=== PATIENT | female | born 1960 | race Caucasian/White ===

== ENCOUNTER 2018-08-16 19:39 | Inpatient (IN) | payer OTHER ==
[~2018-08-16] VITALS: Ht 165.1 cm; Wt 88.4 kg
[2018-08-16] MEDS ORDERED: NS 1,000 ML IV ONE (19:45)
[2018-08-16] MEDS ORDERED: LISI40TA (19:52)
[2018-08-16] MEDS ORDERED: PRAV20TA2 (19:52)
[2018-08-16] MEDS ORDERED: METO50TA7 (19:52)
[2018-08-16] MEDS ORDERED: HYDR12CA (19:52)
[2018-08-16] MEDS ORDERED: LEVO112T2 (19:52)
--- NOTE | 2018-08-16 20:23 | REP ---
Clinical: Altered mental status . Comparison: None . Findings: The ventricles, sulci, and cisterns are normal in position and appearance. Fitzpatrick-white differentiation is maintained. No acute intracranial hemorrhage, mass/mass effect, pathology or trauma/injury. No evidence for acute infarction. No extra-axial fluid collection. Calvarium is intact. Paranasal sinuses and mastoid air cells are clear. Impression: Normal noncontrast head CT. No evidence for acute intracranial pathology or trauma/injury. Electronically Signed by Jaquan Avila MD 08/16/2018 08:16 P
--- NOTE | 2018-08-16 20:25 | REP ---
Clinical: Altered mental status . Comparison: 03/30/2014 . Findings: The mediastinum and cardiac silhouette are stable and within normal limits for portable technique. The lung mesa are clear without acute consolidation, effusion, or pneumothorax. Skeletal structures are intact. Impression: No acute cardiopulmonary process appreciated. Electronically Signed by Jaquan Avila MD 08/16/2018 08:17 P
[2018-08-16 21:03] LABS: BASO # 0.1 10^3/uL (0.0-0.2); BASO % 0.5 % (0.0-1.0); EOS # 0.1 10^3/uL (0.0-0.50); EOS % 0.5 % (0.0-3.0); HEMATOCRIT 34.1 % (36.0-47.0); HEMOGLOBIN 12.3 g/dl (12.0-15.5); LYMPH % 7.9 % (24.0-44.0); MEAN CORPUSCULAR HEMOGLOBIN 30.8 pg (27.0-33.0); MEAN CORPUSCULAR HGB CONC 36.1 g/dl (32.0-36.5); MEAN CORPUSCULAR VOLUME 85.3 fl (80.0-96.0); MONO # 0.4 10^3/uL (0.0-0.8); MONO % 3.6 % (0.0-5.0); NEUTROPHILS # 10.5 10^3/uL (1.8-7.7); NEUTROPHILS % 86.8 % (36.0-66.0); PLATELET COUNT, AUTOMATED 305 10^3/uL (150-450); WHITE BLOOD COUNT 12.1 10^3/uL (4.0-10.0)
[2018-08-16 21:10] LABS: AMPHETAMINES LEVEL URINE NEGATIVE (NEGATIVE); BARBITURATES URINE NEGATIVE (NEGATIVE); BENZODIAZEPINES URINE NEGATIVE (NEGATIVE); CANNABINOIDS URINE NEGATIVE (NEGATIVE); COCAINE METABOLITE URINE NEGATIVE (NEGATIVE); METHADONE URINE NEGATIVE (NEGATIVE); OPIATES URINE NEGATIVE (NEGATIVE); OSMOLALITY SERUM 258 MOSM/KG (275-295); PHENCYCLIDINE URINE NEGATIVE (NEGATIVE)
[2018-08-16 21:38] LABS: ACETAMINOPHEN LEVEL < 2.0 UG/ML (10.0-30.0); ALBUMIN 3.6 GM/DL (3.2-5.2); ALT/SGPT 28 U/L (12-78); BILIRUBIN,DIRECT 0.2 MG/DL (0.0-0.2); BILIRUBIN,TOTAL 0.5 MG/DL (0.2-1.0); BLOOD UREA NITROGEN 4 MG/DL (7-18); CALCIUM LEVEL 8.4 MG/DL (8.5-10.1); CARBON DIOXIDE LEVEL 21 MEQ/L (21-32); CHLORIDE LEVEL 91 MEQ/L (98-107); CK-MB VALUE MASS 3.4 NG/ML (<3.6); CPK CREATINE PHOSPHOKINASE 167 U/L (26-192); CREATININE FOR GFR 0.69 MG/DL (0.55-1.30); ETHYL ALCOHOL (ETHANOL) 0.004 % (0.000-0.010); FREE T4 1.42 NG/DL (0.76-1.46); GLOMERULAR FILTRATION RATE > 60.0 (>51); GLUCOSE, FASTING 142 MG/DL (70-100); MB/CK RELATIVE INDEX 2.04 (< OR =4); POTASSIUM SERUM 3.8 MEQ/L (3.5-5.1); PROLACTIN 11.9 NG/ML; SALICYLATE LEVEL 3.3 MG/DL (5.0-30.0); SODIUM LEVEL 125 MEQ/L (136-145); THYROID STIMULATING HORMONE 0.839 uIU/ML (0.358-3.740); TOTAL PROTEIN 6.9 GM/DL (6.4-8.2); TROPONIN I 0.02 NG/ML (< 0.10)
[2018-08-16] MEDS ORDERED: SYNT112T2 PO (22:31)
[2018-08-16] MEDS ORDERED: LISI40TA PO (22:31)
[2018-08-16] MEDS ORDERED: PRAV20TA2 PO (22:31)
[2018-08-16] MEDS ORDERED: HYDR12CA PO (22:31)
[2018-08-16] MEDS ORDERED: METO50TA7 PO (22:31)
[2018-08-16] MEDS ORDERED: IBUP-1093 PO (22:45)
[2018-08-16] MEDS ORDERED: ISOVUE-370 76% 100ML VIAL (Q9967) As Ordered ONE (22:58)
[2018-08-17] VITALS (12 sets, daily range): BP systolic 106–162; BP diastolic 61–95
--- NOTE | 2018-08-17 00:19 | REPVR ---
EXAM: CT Angiography Chest With Contrast EXAM DATE/TIME: 08/16/2018 11:21 PM CLINICAL HISTORY: 58 years old, female; Chest pain; Type not specified; Additional info: AMS, chest/abd pain TECHNIQUE: Imaging protocol: Axial computed tomographic angiography images of the chest with intravenous contrast using CT angiography protocol. Coronal and sagittal reformatted images were created and reviewed. 3D rendering: MIP reconstructed images were created and reviewed. Radiation optimization: All CT scans at this facility use at least one of these dose optimization techniques: automated exposure control; mA and/or kV adjustment per patient size (includes targeted exams where dose is matched to clinical indication); or iterative reconstruction. Contrast material: [id number]; Contrast volume: 100 ml; Contrast route: IV COMPARISON: CR PORTABLE CHEST X-RAY 08/16/2018 7:59 PM FINDINGS: Peripheral pulmonary artery evaluation limited by cardiac and respiratory motion artifact. Central pulmonary arteries show no intraluminal defect suggestive of clot. No thoracic aortic aneurysm or dissection. No enlarged mediastinal lymph nodes. No pleural effusion or pneumothorax. Pulmonary vascular/interstitial pattern does not suggest active pulmonary edema. No suspicious lung mass or air space process. No central endobronchial lesion. Linear atelectasis is present at the lung bases. Limited visualization of upper abdomen shows no concerning finding. Multi-level, age-related thoracic degenerative disc disease is present. IMPRESSION: No evidence of acute, central pulmonary embolus. No other acute or concerning focal intrathoracic abnormality. Electronically signed by: Enrique Jones On 08/17/2018 00:18:42 AM
--- NOTE | 2018-08-17 00:21 | REPVR ---
EXAM: CT Abdomen and Pelvis With Contrast EXAM DATE/TIME: 08/16/2018 11:21 PM CLINICAL HISTORY: 58 years old, female; Abdominal pain; Generalized; Additional info: AMS, chest/abd pain TECHNIQUE: Imaging protocol: Axial computed tomography images of the abdomen and pelvis with intravenous contrast. Coronal and sagittal reformatted images were created and reviewed. Radiation optimization: All CT scans at this facility use at least one of these dose optimization techniques: automated exposure control; mA and/or kV adjustment per patient size (includes targeted exams where dose is matched to clinical indication); or iterative reconstruction. Contrast material: [id number]; Contrast volume: 100 ml; Contrast route: IV; COMPARISON: CR HIP COMPLETE RIGHT 12/25/2016 3:10 PM FINDINGS: Liver: Liver appears normal with no focal abnormality. Gallbladder and bile ducts: Gallbladder is present and shows no evidence of gallstone. Pancreas: Pancreas appears normal. No focal mass or peripancreatic inflammation. Spleen: Spleen appears homogeneous without focal mass. Adrenals: Adrenal glands are normal in appearance. Kidneys and ureters: Kidneys appear normal, with no stone, solid mass or hydronephrosis. Stomach and bowel: No evidence of small bowel obstruction. Diverticular changes are present within the colon without inflammation. Appendix: Normal caliber appendix is identified, with no adjacent inflammation. Intraperitoneal space: No pneumoperitoneum. No abnormal pelvic mass. Vasculature: Main portal and splenic veins enhance normally. Atherosclerotic change present in the aorta, without aneurysm. Lymph nodes: No enlarged lymph nodes. Bladder: Bladder appears normal. Reproductive: Unremarkable as visualized. Bones/joints: Degenerative changes are seen involving the hip joints, right worse than left. Degenerative changes are seen in the lumbar spine with disc height loss, endplate osteophytes and hypertrophic facet arthropathy. Soft tissues: Unremarkable. IMPRESSION: 1. No acute surgical or inflammatory intra-abdominal or pelvic process. 2. Colonic diverticulosis without evidence of active inflammation Electronically signed by: Enrique Jones On 08/17/2018 00:21:21 AM
[2018-08-17] MEDS ORDERED: MOM 30ML SUSPENSION UDC PO PRN (01:30)
[2018-08-17] MEDS ORDERED: MAALOX 30 ML SUSP *UDC PO PRN (01:30)
[2018-08-17] MEDS ORDERED: LORazepam 2 MG/ML VIAL (J2060) IV PRN (02:00)
[2018-08-17] MEDS ORDERED: LORazepam 2 MG TAB PO PRN (02:00)
[2018-08-17 02:14] LABS: URIC ACID 5.2 MG/DL (2.6-6.0)
--- NOTE | 2018-08-17 02:39 | HPEPDOC ---
General Date of Admission Aug 17, 2018 at 01:30 Date of Service: Aug 17, 2018 Chief Complaint The patient is a 58-year-old female admitted with a reason for visit of Metabolic Encephalopathy. Source: Patient, RN/MD Exam Limitations: Clinical conditions Severity: Moderate History of Present Illness 58 year old female who is an alcoholic with PMH of Hypertension, hyperlipidemia, hypothyroid was brought to the ED by EMS for altered mental status. As per patient's son she last drank on Thursday afternoon. On Thursday08/16/18 around 2 pm she said she was not feeling well her abdomen was bothering her so she went upstairs to lay down. Son went to check on her around 7:30 pm and found her in bed nonresponsive making gurgling noises. She had bladder incontinence . EMS was called . On arrival of the EMS she was more awake but was confused, Her sugars were around 150s. On arrival to the ED she was confused, knew her name but did n ot know where she was . Extensive work up in the ED did not reveal any cause of her confusion. On my interview she complained of low back pain which was dull aching in character and 4/10 in intensity with no radiation. She also complained of right leg cramps and muscle spasms. She was more oriented at this point she knew the name of the hospital where it was located thought she was still confused about the day . She was admitted for Metabolic encephalopathy Home Medications Scheduled Hydrochlorothiazide (Hydrochlorothiazide) 12.5 Mg Capsule, 12.5 MG PO DAILY, (Reported) Levothyroxine Sodium (Synthroid) 112 Mcg Tablet, 112 MCG PO DAILY, (Reported) Lisinopril (Lisinopril) 40 Mg Tablet, 40 MG PO DAILY, (Reported) Metoprolol Tartrate (Metoprolol Tartrate) 50 Mg Tablet, 50 MG PO BID, (Reported) Pravastatin Sodium (Pravastatin Sodium) 20 Mg Tablet, 20 MG PO QHS, (Reported) Scheduled PRN Ibuprofen (Ibuprofen) 200 Mg Tablet, 400 MG PO Q6H PRN for PAIN, (Reported) Allergies Coded Allergies: ENVIROMENTAL (Verified Allergy, Unknown, 08/16/18) Past Medical History Medical History Hypertension, hyperlipidemia, hypothyroid, chronic low back pain Surgical History thyroid surgery, plate an screws in the left forearm Family History Significant Family History: Heart disease (mother), Hypertension (father), Seizures (sister) Social History * Smoker: current smoker Alcohol: heavy Drugs: denies A-FIB/CHADSVASC A-FIB History Current/History of A-Fib/PAF?: No Review of Systems Constitutional: Denies: Chills, Fever, Night Sweats Eyes: Denies: Pain, Vision change ENT: Denies: Head Aches, Ear Pain, Dysphagia Skin: Reports: Rash (bilateral groin), Lesions; Denies: Breakdown Pulmonary: Denies: Dyspnea, Cough Cardiovascular: Denies: Chest Pain, Palpitations, Orthopnea, Paroxysmal Noc. Dyspnea, Lt Headedness Gastrointestinal: Denies: Nausea, Vomiting, Abdominal Pain, Diarrhea Genitourinary: Reports: Incontinence; Denies: Dysuria, Frequency, Retention Hematologic: Denies: Bruising, Bleeding Excessively Musculoskeletal: Reports: Back Pain, Leg Pain, Muscle Pain, Spasms Neurological: Reports: Confusion Physical Examination General Exam: Positive: Alert, Cooperative, No Acute Distress Eye Exam: Positive: Conjunctiva & lids normal ENT Exam: Positive: Atraumatic, Mucous membr. moist/pink, Pharynx Normal Neck Exam: Positive: Supple; Negative: JVD, thyromegaly Chest Exam: Positive: Clear to auscultation, Normal air movement Heart Exam: Positive: Rate Normal, Regular Rhythm, Normal S1, Normal S2; Negative: Murmurs, Rubs Telemetry: Positive: No significant arrhythmia Abdomen Exam: Positive: Normal bowel sounds, Soft; Negative: Tenderness, Hepatospenomegaly Extremity Exam: Negative: Clubbing, Cyanosis, Edema Skin Exam: Positive: Rash (intertriginal candidiasis) Neuro Exam: Positive: Normal Speech Psych Exam: Positive: Anxiety, Other (still confused, orientd x 2) Vital Signs Vital Signs Date Time Temp Pulse Resp B/P (MAP) Pulse Ox O2 Delivery O2 Flow Rate FiO2 08/17/18 00:19 97.0 08/17/18 00:15 134/75 (94) 08/17/18 00:00 95 20 98 Room Air Laboratory Data Labs 24H Laboratory Tests 2 08/16/18 20:01: POC pH (Misc Panel) 7.357, POC Base Excess (Misc Panel) -6.0L, POC Saturated Percent O2 (Misc) 94L, POC pO2 (Misc Panel) 72.0L, POC pCO2 (Misc Panel) 34.8L, POC HCO3 (Misc Panel) 19.5L, POC Total CO2 (Misc Panel) 21.0L 08/16/18 20:26: Immature Granulocyte % (Auto) 0.7, White Blood Count 12.1H, Red Blood Count 4.00, Hemoglobin 12.3, Hematocrit 34.1L, Mean Corpuscular Volume 85.3, Mean Corpuscular Hemoglobin 30.8, Mean Corpuscular Hemoglobin Concent 36.1, Red Cell Distribution Width 12.3, Platelet Count 305, Neutrophils (%) (Auto) 86.8H, Lymphocytes (%) (Auto) 7.9L, Monocytes (%) (Auto) 3.6, Eosinophils (%) (Auto) 0.5, Basophils (%) (Auto) 0.5, Neutrophils # (Auto) 10.5H, Lymphocytes # (Auto) 1.0L, Monocytes # (Auto) 0.4, Eosinophils # (Auto) 0.1, Basophils # (Auto) 0.1, Nucleated Red Blood Cells % (auto) 0.0, Urine Color YELLOW, Urine Appearance CLEAR, Urine pH 5.0, Urine Specific [place] 1.012, Urine Protein 1+H, Urine Glucose (UA) NEGATIVE, Urine Ketones TRACEH, Urine Blood 1+H, Urine Nitrite NEGATIVE, Urine Bilirubin NEGATIVE, Urine Urobilinogen 0.2, Urine Leukocyte Esterase NEGATIVE, Urine WBC (Auto) 1, Urine RBC (Auto) 4H, Urine Hyaline Casts (Auto) 0, Urine Bacteria (Auto) NEGATIVE, Urine Squamous Epithelial Cells 0, Urine Mucus (Auto) SMALL, Urine Sperm (Auto) , Anion Gap 13, Glomerular Joon tration Rate > 60.0, Osmolality 258L, Lactic Acid Level 2.8*H, Calcium Level 8.4L, Aspartate Amino Transf (AST/SGOT) 30, Alanine Aminotransferase (ALT/SGPT) 28, Alkaline Phosphatase 66, Total Bilirubin 0.5, Direct Bilirubin 0.2, Ammonia 11, Total Creatine Kinase 167, Creatine Kinase MB 3.4, Creatine Kinase MB Relative Index 2.04, Troponin I 0.02, Total Protein 6.9, Albumin 3.6, Albumin/Globulin Ratio 1.09, Thyroid Stimulating Hormone (TSH) 0.839, Free Thyroxine 1.42, Prolactin 11.9, Salicylates Level 3.3L, Urine Amphetamines Screen NEGATIVE, Urine Benzodiazepines Screen NEGATIVE, Urine Opiates Screen NEGATIVE, Urine Methadone Screen NEGATIVE, Acetaminophen Level < 2.0L, Urine Barbiturates Screen NEGATIVE, Urine Phencyclidine Screen NEGATIVE, Urine Cocaine Metabolite Screen NEGATIVE, Urine Cannabinoids Screen NEGATIVE, Ethyl Alcohol Level 0.004 08/16/18 20:37: Bedside Glucose (Misc Panel) 155H 08/17/18 00:52: Lactic Acid Followup at 4 Hours 1.0 CBC/BMP Laboratory Tests 08/16/18 20:26 Red Blood Count 4.00, Mean Corpuscular Volume 85.3, Mean Corpuscular Hemoglobin 30.8, Mean Corpuscular Hemoglobin Concent 36.1, Red Cell Distribution Width 12.3, Neutrophils (%) (Auto) 86.8 H, Lymphocytes (%) (Auto) 7.9 L, Monocytes (%) (Auto) 3.6, Eosinophils (%) (Auto) 0.5, Basophils (%) (Auto) 0.5, Neutrophils # (Auto) 10.5 H, Lymphocytes # (Auto) 1.0 L, Monocytes # (Auto) 0.4, Eosinophils # (Auto) 0.1, Basophils # (Auto) 0.1 Microbiology Microbiology 08/16/18 Blood Culture, Received Pending 08/16/18 Blood Culture, Received Pending Assessment/Plan 58 year old female who is an alcoholic with PMH of Hypertension, hyperlipidemia, hypothyroid was brought to the ED by EMS for altered mental status. As per patient's son she last drank on Thursday afternoon. On Thursday08/16/18 around 2 pm she said she was not feeling well her abdomen was bothering her so she went upstairs to lay down. Son went to check on her around 7:30 pm and found her in bed nonresponsive making gurgling noises. She had bladder incontinence . EMS was called . On arrival of the EMS she was more awake but was confused, Her sugars were around 150s. On arrival to the ED she was confused, knew her name but did not know where she was . Extensive work up in the ED did not reveal any cause of her confusion. On my interview she complained of low back pain which was dull aching in character and 4/10 in intensity with no radiation. She also complained of right leg cramps and muscle spasms. She was more oriented at this point she knew the name of the hospital where it was located thought she was still confused about the day . She was admitted for Metabolic encephalopathy Metabolic encephalopathy No cause yet determined most probably post ictal I am highly suspicious that patient had an alcohol withdrawal seizure and she is in a postictal state Normal prolactin and only marginally elevated lactate and arguing against a GTCS. I would expect a very high prolactin level and very high lactate levels No hypoglycemia, no fever or elevated WBC. CT head negative. CT angio negative for PE, CT chest , abd, pelvis negative for any infection, bleed, Ammonia normal EEG Ativan IV prn seizure seizure precaution Alcohol abuse CIWA protocol. Chronic hyponatremia now worse than baseline probably related to beer rinking and HCTZ. will hold HCTZ. fluid restriction. send urine osmolality, urine sodium, serum uric acid Hypertension continue lisinopril and metoprolol Hypothyroid synthroid Hyperlipidemia continue statin Right sided low back and right hip pain Degenerative changes are seen involving the hip joints, right worse than left. Degenerative changes are seen in the lumbar spine with disc height loss, endplate osteophytes and hypertrophic facet arthropathy. will give lidoderm patches / flector patches PT Intertriginous candidiasis at the groin nystatin powder Plan / VTE VTE Prophylaxis Ordered?: Yes DONALD CHENG MD Aug 17, 2018 02:26
[2018-08-17] MEDS: LEVOTHYROXINE 112MCG TABLET (0.112MG) PO SCH (06:27)
[2018-08-17 06:55] LABS: BLOOD UREA NITROGEN 4 MG/DL (7-18); CALCIUM LEVEL 8.7 MG/DL (8.5-10.1); CARBON DIOXIDE LEVEL 24 MEQ/L (21-32); CHLORIDE LEVEL 95 MEQ/L (98-107); CREATININE FOR GFR 0.55 MG/DL (0.55-1.30); GLOMERULAR FILTRATION RATE > 60.0 (>51); GLUCOSE, FASTING 84 MG/DL (70-100); POTASSIUM SERUM 3.7 MEQ/L (3.5-5.1); SODIUM LEVEL 128 MEQ/L (136-145)
[2018-08-17] MEDS: NYSTATIN 100,000 UNITS/GM TOPICAL PWD 15 GM TOP SCH ×2 (09:19→20:14)
[2018-08-17] MEDS: DOCUSATE SODIUM 100 MG CAP PO SCH ×2 (09:20→20:15)
[2018-08-17] MEDS: THIAMINE 100 MG TAB PO SCH ×2 (09:20→20:15)
[2018-08-17] MEDS: ENOXAPARIN 40 MG/0.4 ML SYRINGE (J1650) SC SCH (09:20)
[2018-08-17] MEDS: DICLOFENAC EPOLAMINE 1.3 % PATCH TOP SCH ×2 (09:20→20:16)
[2018-08-17] MEDS: MULTIVITAMINS/MINERALS THERAP 1 TAB PO SCH (09:21)
[2018-08-17] MEDS: LISINOPRIL 40 MG TAB PO SCH (09:21)
[2018-08-17] MEDS: FOLIC ACID 1 MG TAB PO SCH (09:21)
[2018-08-17] MEDS: METOPROLOL TART 50 MG TAB PO SCH ×2 (09:21→20:15)
--- NOTE | 2018-08-17 15:32 | ECGEPIP ---
[facility] - ED Test Date: 2018-08-16 Pat Name: JORDI DAWKINS Department: Room: [place] [address] Gender: Female Filling Separator: ct : 1960 Requested By: TOBI Akins Order Number: [id number] Reading MD: Carmen Moreno Measurements Intervals [place] Rate: 113 P: 50 VA: 183 QRS: 10 QRSD: 90 T: 36 QT: 325 QTc: 446 Interpretive Statements SINUS TACHYCARDIA ABNORMAL RHYTHM ECG NSTTW abnormalities No prior Electronically Signed on 08-17-2018 15:32:28 EDT by Carmen Moreno
[2018-08-17 17:52] LABS: SODIUM,RANDOM URINE 36 MEQ/L
[2018-08-17 19:19] LABS: OSMOLALITY URINE 348 MOSM/KG (500-800)
[2018-08-17] MEDS ORDERED: PRAVASTATIN 20 MG TAB PO SCH (21:00)
[2018-08-18 06:00] VITALS: BP 154/86
[2018-08-18] MEDS: LEVOTHYROXINE 112MCG TABLET (0.112MG) PO SCH (06:09)
[2018-08-18 06:13] VITALS: BP 154/86
[2018-08-18 06:29] LABS: BASO % 0.6 % (0.0-1.0); EOS # 0.1 10^3/uL (0.0-0.50); EOS % 1.3 % (0.0-3.0); HEMATOCRIT 32.1 % (36.0-47.0); HEMOGLOBIN 11.4 g/dl (12.0-15.5); LYMPH # 1.6 10^3/uL (1.5-4.5); LYMPH % 22.1 % (24.0-44.0); MEAN CORPUSCULAR HEMOGLOBIN 31.4 pg (27.0-33.0); MEAN CORPUSCULAR HGB CONC 35.5 g/dl (32.0-36.5); MEAN CORPUSCULAR VOLUME 88.4 fl (80.0-96.0); MONO # 0.5 10^3/uL (0.0-0.8); MONO % 7.5 % (0.0-5.0); NEUTROPHILS # 4.8 10^3/uL (1.8-7.7); NEUTROPHILS % 67.9 % (36.0-66.0); PLATELET COUNT, AUTOMATED 257 10^3/uL (150-450); RED BLOOD COUNT 3.63 10^6/uL (4.00-5.40); WHITE BLOOD COUNT 7.1 10^3/uL (4.0-10.0)
[2018-08-18 06:47] LABS: BLOOD UREA NITROGEN 6 MG/DL (7-18); CALCIUM LEVEL 8.6 MG/DL (8.5-10.1); CARBON DIOXIDE LEVEL 27 MEQ/L (21-32); CHLORIDE LEVEL 97 MEQ/L (98-107); CREATININE FOR GFR 0.64 MG/DL (0.55-1.30); GLOMERULAR FILTRATION RATE > 60.0 (>51); GLUCOSE, FASTING 82 MG/DL (70-100); POTASSIUM SERUM 3.3 MEQ/L (3.5-5.1); SODIUM LEVEL 131 MEQ/L (136-145)
[2018-08-18] MEDS ORDERED: POTASSIUM CHLORIDE 10 MEQ SR TABLET PO ONE (08:15)
--- NOTE | 2018-08-18 08:33 | IPNPDOC ---
Date Seen The patient was seen on 08/18/18. Progress Note Subjective: pt is awake and alert. "I want to go home." no tremors, no c/o restlessness. last etoh drink was thursday. previous episode of unresponsiveness, but pt says, "I was never hospitalized for that before," but denies having history of seizures. Pt c/o not having much appetite for the past few days, and not eating when she drinks "Oh, maybe 6-8 a day," of alcohol. Pt is cooperative to do an EEG, but "I don't know about that, you would have to knock me out," when asked if she would give permission to get an MRI Brain. Objective: Vitals: Physical Examination General Exam: Positive: Alert, awake, oriented to place, person, and time, Cooperative, No Acute Distress Eye Exam: Positive: Conjunctiva & lids normal ENT Exam: Positive: Atraumatic, Mucous membr. moist/pink, Pharynx Normal Neck Exam: Positive: Supple; Negative: JVD, thyromegaly Chest Exam: Positive: Clear to auscultation, Normal air movement Heart Exam: Positive: Rate Normal, Regular Rhythm, Normal S1, Normal S2; Negative: Murmurs, Rubs Telemetry: Positive: No significant arrhythmia Abdomen Exam: Positive: Normal bowel sounds, Soft; Negative: Tenderness, Hepatospenomegaly Extremity Exam: Negative: Clubbing, Cyanosis, Edema Skin Exam: Positive: Rash (intertriginal candidiasis) Neuro Exam: Positive: Normal Speech Psych Exam: Positive: Anxiety, Other (still confused, orientd x 2) laboratory, microbiology, imaging: Assessment/Plan 58 year old female who is an alcoholic with PMH of Hypertension, hyperlipidemia, hypothyroid was brought to the ED by EMS for altered mental status. As per patient's son she last drank on Thursday afternoon. On Thursday08/16/18 around 2 pm she said she was not feeling well her abdomen was bothering her so she went upstairs to lay down. Son went to check on her around 7:30 pm and found her in bed nonresponsive making gurgling noises. She had bladder incontinence . EMS was called . On arrival of the EMS she was more awake but was confused, Her sugars were around 150s. On arrival to the ED she was confused, knew her name but did not know where she was . Extensive work up in the ED did not reveal any cause of her confusion. On my interview she complained of low back pain which was dull aching in character and 4/10 in intensity with no radiation. She also complained of right leg cramps and muscle spasms. She was more oriented at this point she knew the name of the hospital where it was located thought she was still confused about the day . She was admitted for Metabolic encephalopathy Metabolic encephalopathy No cause yet determined most probably post ictal possible alcohol withdrawal seizure and presented in a postictal state, but had Normal prolactin and only marginally elevated lactate and arguing against a GTCS. I would expect a very high prolactin level and very high lactate levels No hypoglycemia, no fever or elevated WBC. CT head negative. CT angio negative for PE, CT chest , abd, pelvis negative for any infection, bleed, Ammonia normal EEG report pending Ativan IV prn seizure seizure precaution pt wants sedation if MRI brain is to be done. Alcohol abuse [facility] protocol. Chronic hyponatremia now worse than baseline probably related to beer drinking and HCTZ. will hold HCTZ. fluid restriction. reviewed urine osmolality, urine sodium, serum uric acid Hypertension continue lisinopril and metoprolol Hypothyroid synthroid Hyperlipidemia continue statin Right sided low back and right hip pain Degenerative changes are seen involving the hip joints, right worse than left. Degenerative changes are seen in the lumbar spine with disc height loss, endplate osteophytes and hypertrophic facet arthropathy. will give lidoderm patches / flector patches PT Intertriginous candidiasis at the groin nystatin powder disposition: 1-2 days, awaiting EEG report and home safety eval. if EEG has epileptiform activity, will need neurology and MRI brain. VS, I&O, 24H, Fishbone Vital Signs/I&O Vital Signs Date Time Temp Pulse Resp B/P (MAP) Pulse Ox O2 Delivery O2 Flow Rate FiO2 08/18/18 06:13 71 154/86 08/18/18 06:00 98.3 20 96 08/17/18 06:00 2.0 08/17/18 03:19 Nasal Cannula I&O- Last 24 Hours up to 6 AM 08/18/18 06:00 Intake Total 510 ml Output Total 1300 ml Balance -790 ml Laboratory Data 24H LABS Laboratory Tests 2 08/17/18 17:18: Urine Random Osmolality 348L, Urine Random Sodium 36 6/26/19 05:33: Immature Granulocyte % (Auto) 0.6, White Blood Count 7.1, Red Blood Count 3.63L, Hemoglobin 11.4L, Hematocrit 32.1L, Mean Corpuscular Volume 88.4, Mean Corpuscular Hemoglobin 31.4, Mean Corpuscular Hemoglobin Concent 35.5, Red Cell Distribution Width 12.9, Platelet Count 257, Neutrophils (%) (Auto) 67.9H, Lymphocytes (%) (Auto) 22.1L, Monocytes (%) (Auto) 7.5H, Eosinophils (%) (Auto) 1.3, Basophils (%) (Auto) 0.6, Neutrophils # (Auto) 4.8, Lymphocytes # (Auto) 1.6, Monocytes # (Auto) 0.5, Eosinophils # (Auto) 0.1, Basophils # (Auto) 0.0, Nucleated Red Blood Cells % (auto) 0.0, Anion Gap 7L, Glomerular Filtration Rate > 60.0, Blood Urea Nitrogen 6L, Creatinine 0.64, Sodium Level 131L, Potassium Level 3.3L, Chloride Level 97L, Carbon Dioxide Level 27, Calcium Level 8.6 CBC/BMP Laboratory Tests 08/18/18 05:33 Red Blood Count 3.63 L, Mean Corpuscular Volume 88.4, Mean Corpuscular Hemoglob in 31.4, Mean Corpuscular Hemoglobin Concent 35.5, Red Cell Distribution Width 12.9, Neutrophils (%) (Auto) 67.9 H, Lymphocytes (%) (Auto) 22.1 L, Monocytes (%) (Auto) 7.5 H, Eosinophils (%) (Auto) 1.3, Basophils (%) (Auto) 0.6, Neutrophils # (Auto) 4.8, Lymphocytes # (Auto) 1.6, Monocytes # (Auto) 0.5, Eosinophils # (Auto) 0.1, Basophils # (Auto) 0.0, Calcium Level 8.6 Microbiology Microbiology 08/16/18 Blood Culture - Preliminary, Resulted No growth after 24 hours . All specim... 08/16/18 Blood Culture - Preliminary, Resulted No growth after 24 hours . All specim... TED NATHAN MD Aug 18, 2018 07:59
[2018-08-18] MEDS: NYSTATIN 100,000 UNITS/GM TOPICAL PWD 15 GM TOP SCH (09:00)
[2018-08-18] MEDS: LISINOPRIL 40 MG TAB PO SCH (09:40)
[2018-08-18] MEDS: THIAMINE 100 MG TAB PO SCH (09:40)
[2018-08-18] MEDS: FOLIC ACID 1 MG TAB PO SCH (09:40)
[2018-08-18] MEDS: DOCUSATE SODIUM 100 MG CAP PO SCH (09:40)
[2018-08-18] MEDS: METOPROLOL TART 50 MG TAB PO SCH (09:41)
[2018-08-18] MEDS: DICLOFENAC EPOLAMINE 1.3 % PATCH TOP SCH (09:41)
[2018-08-18] MEDS: MULTIVITAMINS/MINERALS THERAP 1 TAB PO SCH (09:41)
[2018-08-18] MEDS: ENOXAPARIN 40 MG/0.4 ML SYRINGE (J1650) SC SCH (09:42)
[2018-08-18] MEDS ORDERED: THIA100TA PO (12:39)
[2018-08-18] MEDS ORDERED: amLODIPine 5 MG TAB PO ONE (12:45)
[2018-08-18] MEDS ORDERED: OXAZEPAM 10 MG CAP PO ONE (13:00)
[2018-08-18 13:01] VITALS: BP 148/90
--- NOTE | 2018-08-18 13:47 | EEG ---
DATE OF EE08/17/2018 REFERRING PHYSICIAN: Dr. Karolyn Palmer DIAGNOSIS: Seizure. EEG NUMBER: [id number] HISTORY: Patient is a 58-year-old woman with history of alcohol abuse, dyslipidemia, hypertension who was brought to [facility] due to altered mental status. She was found in her bed unresponsive making gurgling noises. She had urinary incontinence and was admitted for metabolic encephalopathy. She is currently taking folic acid, multivitamin, thiamine, lisinopril, Ativan, etc. TECHNICAL DESCRIPTION: This digital EEG was recorded by 21 scalp, ear and two EKG electrodes and was reviewed in bipolar and referential montages following reformatting in 10-20 international electrode placement system. INTERPRETATION: Patient was noted to be in awake and drowsy states during this EEG. Resting awake background rhythm consisted of well-formed posterior dominant rhythm with anterior/posterior gradient comprising of 11 Hz alpha activity measuring 15-30 microvolts in amplitude, which was symmetric and reactive to eye opening. Attenuation of posterior dominant rhythm was seen during transition into drowsiness. Stage I and II sleep were reviewed and were symmetric bilaterally. Hyperventilation could not be performed. Photic stimulation remained unremarkable. EKG revealed normal sinus rhythm. No focal, lateralizing or epileptiform abnormalities were seen. No clinical or electrographic seizures were recorded. CONCLUSION: This EEG in awake, drowsy states, stage I and II sleep is within normal limits.
--- NOTE | 2018-08-18 17:03 | DS.PDOC ---
Discharge Summary General Date of Admission Aug 17, 2018 at 01:30 Date of Discharge August 18, 2018 Discharge Summary PROCEDURES PERFORMED DURING STAY: EEG 08/18/18 DISCHARGE DIAGNOSES: Acute Metabolic Encephalopathy Probable Alcoholic Withdrawal Seizure Chronic Alcohol abuse HTN Dyslipidemia DISCHARGE MEDICATIONS: pls see below DISCHARGE INSTRUCTIONS: Immediate followup with Primary care physician within 5 days of hospital discharge Refrain from Alcohol use Primary care physician to refer to alcohol rehab program Return to ER if recurrent symptoms History of Presenting Illness: 58 year old female who is an alcoholic with PMH of Hypertension, hyperlipidemia, hypothyroid was brought to the ED by EMS for altered mental status. As per patient's son she last drank on Thursday afternoon. On Thursday08/16/18 around 2 pm she said she was not feeling well her abdomen was bothering her so she went upstairs to lay down. Son went to check on her around 7:30 pm and found her in bed nonresponsive making gurgling noises. She had bladder incontinence . EMS was called . On arrival of the EMS she was more awake but was confused, Her sugars were around 150s. On arrival to the ED she was confused, knew her name but did not know where she was . Extensive work up in the ED did not reveal any cause of her confusion. On my interview she complained of low back pain which was dull aching in character and 4/10 in intensity with no radiation. She also complained of right leg cramps and muscle spasms. She was more oriented at this point she knew the name of the hospital where it was located thought she was still confused about the day . She was admitted for Metabolic encephalopathy Hospital Course: Metabolic encephalopathy -most probably post ictal -possible alcohol withdrawal seizure and presented in a postictal state, but had Normal prolactin and only marginally elevated lactate and arguing against a GTCS. I would expect a very high prolactin level and very high lactate levels -No hypoglycemia, no fever or elevated WBC. CT head negative. -CT angio negative for PE, CT chest , abd, pelvis negative for any infection, bleed - Ammonia normal -EEG report pending -Ativan IV prn seizure -seizure precaution -resolved, and back to baseline - pt passed home safety evaluation. -anxious to be discharge Alcohol abuse -[facility] protocol. -alcohol cessation counselling provided. -pt was encouraged to go into a voluntary alcohol rehab program -Primary care physician to refer to alcohol rehab program Chronic hyponatremia -now worse than baseline -probably related to beer drinking and HCTZ. -held hctz -placed on fluid restriction. -reviewed urine osmolality, urine sodium, serum uric acid -unlikely to have cause encephalopathy Hypertension -continue lisinopril and metoprolol -monitored for withdrawal symptoms -given one dose of norvasc 5 mg due to systolic bp of 180mmHg, with resultant improvement to 14ommHg prior to hospital discharge -immediate outpt fu with primary care physician Hypothyroid -resumed on synthroid Hyperlipidemia continue statin Right sided low back and right hip pain -Degenerative changes are seen involving the hip joints, right worse than left. Degenerative changes are seen in the lumbar spine with disc height loss, endplate osteophytes and hypertrophic facet arthropathy. -will give lidoderm patches / flector patches - passed physical therapy and cleared for discharge home. Intertriginous candidiasis at the groin nystatin powder Vitals: Physical Examination General Exam: Positive: Alert, awake, oriented to place, person, and time, Cooperative, No Acute Distress Eye Exam: Positive: Conjunctiva & lids normal ENT Exam: Positive: Atraumatic, Mucous membr. moist/pink, Pharynx Normal Neck Exam: Positive: Supple; Negative: JVD, thyromegaly Chest Exam: Positive: Clear to auscultation, Normal air movement Heart Exam: Positive: Rate Normal, Regular Rhythm, Normal S1, Normal S2; Negative: Murmurs, Rubs Telemetry: Positive: No significant arrhythmia Abdomen Exam: Positive: Normal bowel sounds, Soft; Negative: Tenderness, Hepatospenomegaly Extremity Exam: Negative: Clubbing, Cyanosis, Edema Skin Exam: Positive: Rash (intertriginal candidiasis) Neuro Exam: Positive: Normal Speech Psych Exam: Positive: Anxiety, Other (still confused, orientd x 2) laboratory, microbiology, imaging:pls see below Clinical: Altered mental status . Comparison: None . Findings: The ventricles, sulci, and cisterns are normal in position and appearance. Fitzpatrick-white differentiation is maintained. No acute intracranial hemorrhage, mass/mass effect, pathology or trauma/injury. No evidence for acute infarction. No extra-axial fluid collection. Calvarium is intact. Paranasal sinuses and mastoid air cells are clear. Impression: Normal noncontrast head CT. No evidence for acute intracranial pathology or trauma/injury. Electronically Signed by Jaquan Avila MD 08/16/2018 08:16 P Time spent on hospital discharge: 32minutes Vital Signs/I&Os Vital Signs Date Time Temp Pulse Resp B/P (MAP) Pulse Ox O2 Delivery O2 Flow Rate FiO2 08/18/18 13:01 72 148/90 08/18/18 06:00 98.3 20 96 08/17/18 06:00 2.0 08/17/18 03:19 Nasal Cannula I&O- Last 24 Hours up to 6 AM 08/18/18 06:00 Intake Total 510 ml Output Total 1300 ml Balance -790 ml Laboratory Data Labs 24H Laboratory Tests 2 08/17/18 17:18: Urine Random Osmolality 348L, Urine Random Sodium 36 08/18/18 05:33: Immature Granulocyte % (Auto) 0.6, White Blood Count 7.1, Red Blood Count 3.63L, Hemoglobin 11.4L, Hematocrit 32.1L, Mean Corpuscular Volume 88.4, Mean Corpuscular Hemoglobin 31.4, Mean Corpuscular Hemoglobin Concent 35.5, Red Cell Distribution Width 12.9, Platelet Count 257, Neutrophils (%) (Auto) 67.9H, Lymphocytes (%) (Auto) 22.1L, Monocytes (%) (Auto) 7.5H, Eosinophils (%) (Auto) 1.3, Basophils (%) (Auto) 0.6, Neutrophils # (Auto) 4.8, Lymphocytes # (Auto) 1.6, Monocytes # (Auto) 0.5, Eosinophils # (Auto) 0.1, Basophils # (Auto) 0.0, Nucleated Red Blood Cells % (auto) 0.0, Anion Gap 7L, Glomerular Filtration Rate > 60.0, Blood Urea Nitrogen 6L, Creatinine 0.64, Sodium Level 131L, Potassium Level 3.3L, Chloride Level 97L, Carbon Dioxide Level 27, Calcium Level 8.6 CBC/BMP Laboratory Tests 08/18/18 05:33 Red Blood Count 3.63 L, Mean Corpuscular Volume 88.4, Mean Corpuscular Hemoglobin 31.4, Mean Corpuscular Hemoglobin Concent 35.5, Red Cell Distribution Width 12.9, Neutrophils (%) (Auto) 67.9 H, Lymphocytes (%) (Auto) 22.1 L, Monocytes (%) (Auto) 7.5 H, Eosinophils (%) (Auto) 1.3, Basophils (%) (Auto) 0.6, Neutrophils # (Auto) 4.8, Lymphocytes # (Auto) 1.6, Monocytes # (Auto) 0.5, Eosinophils # (Auto) 0.1, Basophils # (Auto) 0.0, Calcium Level 8.6 Microbiology Microbiology 08/16/18 Blood Culture - Preliminary, Resulted No growth after 24 hours . All specim... 08/16/18 Blood Culture - Preliminary, Resulted No growth after 24 hours . All specim... Discharge Medications Scheduled Hydrochlorothiazide (Hydrochlorothiazide) 12.5 Mg Capsule, 12.5 MG PO DAILY, (Reported) Levothyroxine Sodium (Synthroid) 112 Mcg Tablet, 112 MCG PO DAILY, (Reported) Lisinopril (Lisinopril) 40 Mg Tablet, 40 MG PO DAILY, (Reported) Metoprolol Tartrate (Metoprolol Tartrate) 50 Mg Tablet, 50 MG PO BID, (Reported) Pravastatin Sodium (Pravastatin Sodium) 20 Mg Tablet, 20 MG PO QHS, (Reported) Thiamine Hcl (Vitamin B-1) 100 Mg Tablet, 100 MG PO DAILY Scheduled PRN Ibuprofen (Ibuprofen) 200 Mg Tablet, 400 MG PO Q6H PRN for PAIN, (Reported) Allergies Coded Allergies: ENVIROMENTAL (Verified Allergy, Unknown, 08/16/18) TED NATHAN MD Aug 18, 2018 16:52
== END 2018-08-18 14:25 | disposition home or self-care (01) | DRG 52 ==
LOC: M ED 19:39 → M ED INP 08-17 01:30 → M MSPAV 08-17 03:30
PROVIDERS: ADMIT Internal Medicine Nephrology; ATTEND General Practice
DX: G93.41 Metabolic encephalopathy (principal); B37.89 Other sites of candidiasis; R56.9 Unspecified convulsions; E87.1 Hypo-osmolality and hyponatremia; I10 Essential (primary) hypertension; E78.5 Hyperlipidemia, unspecified; F10.239 Alcohol dependence with withdrawal, unspecified; E03.9 Hypothyroidism, unspecified; M19.90 Unspecified osteoarthritis, unspecified site; Z79.899 Other long term (current) drug therapy; F17.200 Nicotine dependence, unspecified, uncomplicated; M54.5 Low back pain

== ENCOUNTER → 2020-01-24 | Outpatient (REF) | payer OTHER ==
[~2020-01-24] MED LIST: HYDR12CA; HYDR12CA PO; IBUP-1730 PO; LEVO112T2; LISI40TA; LISI40TA PO; METO50TA7; METO50TA7 PO; PRAV20TA2; PRAV20TA2 PO; SYNT112T2 PO; THIA100TA PO
[2020-01-24 18:32] LABS: HEPATITIS A ANTIBODY IGM NEGATIVE (NEGATIVE); HEPATITIS B CORE ANTIBODY IGM NEGATIVE (NEGATIVE); HEPATITIS B SURFACE ANTIGEN NEGATIVE (NEGATIVE)
== END ==
LOC: M LAB REF 16:19
PROVIDERS: ATTEND Nurse Practitioner Adult Health
DX: R94.5 Abnormal results of liver function studies (principal)

== ENCOUNTER 2022-08-22 12:05 | Emergency (ER) | payer OTHER ==
[~2022-08-22 12:05] MED LIST changes: -LISI40TA; -LISI40TA PO; +LISI40TA4; +LISI40TA4 PO
[2022-08-22 12:13] VITALS: BP 128/91; TEMP 98.3; O2SAT 98
== END 2022-08-22 13:24 | disposition home or self-care (01) ==
LOC: EDBD 12:05 → M ED 12:05
DX: Z59.00 Homelessness unspecified (principal); F17.200 Nicotine dependence, unspecified, uncomplicated; Z79.899 Other long term (current) drug therapy

== ENCOUNTER 2022-08-30 08:41 | Observation (INO) | payer OTHER ==
[~2022-08-30] VITALS: Ht 165.1 cm; Wt 64.0 kg
[2022-08-30] MEDS ORDERED: traMADol 50 MG TAB PO ONE (14:50)
[2022-08-30] MEDS ORDERED: MED REC IN PROGRESS XX SCH (15:20)
[2022-08-30] MEDS ORDERED: LEVO100T5 PO (15:35)
[2022-08-30] MEDS ORDERED: METO1TAB33 PO (15:35)
[2022-08-30] MEDS ORDERED: HOME MED LIST COMPLETE! XX SCH (15:40)
[2022-08-30 16:52] LABS: BASO # 0.1 10^3/uL (0.0-0.2); BASO % 1.2 % (0.0-1.0); EOS # 0.1 10^3/uL (0.0-0.5); EOS % 1.6 % (0.0-3.0); HEMATOCRIT 34.2 % (36.0-47.0); HEMOGLOBIN 11.7 g/dl (12.0-15.5); LYMPH # 1.4 10^3/uL (1.5-5.0); MEAN CORPUSCULAR HEMOGLOBIN 31.6 pg (27.0-33.0); MEAN CORPUSCULAR HGB CONC 34.2 g/dl (32.0-36.5); MEAN CORPUSCULAR VOLUME 92.4 fl (80.0-96.0); MONO # 0.6 10^3/uL (0.0-0.8); MONO % 8.2 % (2.0-8.0); NEUTROPHILS # 4.5 10^3/uL (1.5-8.5); NEUTROPHILS % 67.6 % (36.0-66.0); PLATELET COUNT, AUTOMATED 310 10^3/uL (150-450); WHITE BLOOD COUNT 6.7 10^3/uL (4.0-10.0)
[2022-08-30 17:19] LABS: ALBUMIN 3.4 G/DL (3.2-5.2); ALKALINE PHOSPHATASE 75 U/L (46-116); ALT/SGPT 33 U/L (7.0-40); AST/SGOT 29 U/L (<34); BILIRUBIN,TOTAL 0.7 MG/DL (0.3-1.2); BLOOD UREA NITROGEN 5 MG/DL (9-23); C REACTIVE PROTEIN QUANTITATIV < 0.40 MG/DL (<1.0); CALCIUM LEVEL 9.6 MG/DL (8.3-10.6); CARBON DIOXIDE LEVEL 27 MMOL/L (20-31); CHLORIDE LEVEL 98 MMOL/L (98-107); CREATININE FOR GFR 0.49 MG/DL (0.55-1.30); GLOMERULAR FILTRATION RATE > 60.0 (>45); GLUCOSE, FASTING 94 MG/DL (74-106); POTASSIUM SERUM 4.4 MMOL/L (3.5-5.1); SODIUM LEVEL 131 MMOL/L (136-145); TOTAL PROTEIN 6.3 G/DL (5.7-8.2)
[2022-08-30 17:21] LABS: ERYTHROCYTE SEDIMENTATION RATE 18 mm/hr (0-30)
[2022-08-30] MEDS ORDERED: ACETAMINOPHEN TAB 650MG DOSE (2X325MG) PO PRN (18:55)
[2022-08-30] MEDS ORDERED: PERCOCET 5MG/325MG TAB PO PRN (18:55)
[2022-08-30] MEDS ORDERED: tiZANidine 4 MG TAB PO SCH (21:00)
[2022-08-30 21:20] VITALS: BP 141/74; TEMP 97; O2SAT 100
[2022-08-30] MEDS: DOCUSATE SODIUM 100MG CAPSULE PO SCH (21:53)
[2022-08-30] MEDS: LIDOCAINE 5% (LIDODERM) PATCH TD SCH (21:53)
[2022-08-30] MEDS: PRAVASTATIN 20 MG TAB PO SCH (21:53)
[2022-08-31] MEDS ORDERED: NYSTATIN 100,000 UNITS/GM TOPICAL PWD 15GM TOP PRN (01:25)
[2022-08-31] MEDS: LEVOTHYROXINE 100MCG TABLET (0.1MG) PO SCH (05:12)
[2022-08-31 06:00] VITALS: BP 126/66; TEMP 97.3; O2SAT 99
[2022-08-31 06:56] LABS: HEMATOCRIT 31.5 % (36.0-47.0); HEMOGLOBIN 10.6 g/dl (12.0-15.5); MEAN CORPUSCULAR HEMOGLOBIN 31.5 pg (27.0-33.0); MEAN CORPUSCULAR HGB CONC 33.7 g/dl (32.0-36.5); MEAN CORPUSCULAR VOLUME 93.8 fl (80.0-96.0); PLATELET COUNT, AUTOMATED 265 10^3/uL (150-450); RED BLOOD COUNT 3.36 10^6/uL (4.00-5.40); WHITE BLOOD COUNT 4.9 10^3/uL (4.0-10.0)
[2022-08-31 07:22] LABS: BLOOD UREA NITROGEN 8 MG/DL (9-23); CALCIUM LEVEL 8.5 MG/DL (8.3-10.6); CARBON DIOXIDE LEVEL 29 MMOL/L (20-31); CHLORIDE LEVEL 99 MMOL/L (98-107); CREATININE FOR GFR 0.52 MG/DL (0.55-1.30); GLOMERULAR FILTRATION RATE > 60.0 (>45); GLUCOSE, FASTING 95 MG/DL (74-106); MAGNESIUM LEVEL 1.8 MG/DL (1.8-2.4); POTASSIUM SERUM 4.1 MMOL/L (3.5-5.1); SODIUM LEVEL 131 MMOL/L (136-145)
[2022-08-31] MEDS ORDERED: ACETAMINOPHEN TAB 650MG DOSE (2X325MG) PO PRN (07:30)
[2022-08-31] MEDS: LIDOCAINE 5% (LIDODERM) PATCH TD SCH (08:59)
[2022-08-31] MEDS: lisinopriL 40MG TAB PO SCH (08:59)
[2022-08-31] MEDS: ACETAMINOPHEN 500 MG TAB PO SCH ×2 (08:59→21:47)
[2022-08-31] MEDS: FAMOTIDINE 20 MG TAB PO SCH ×2 (08:59→21:47)
[2022-08-31] MEDS: NAPROXEN 250 MG TAB PO SCH ×2 (09:00→21:48)
[2022-08-31] MEDS ORDERED: hydroCHLOROthiazide 12.5 MG CAPSULE PO SCH (09:00)
[2022-08-31] MEDS: DOCUSATE SODIUM 100MG CAPSULE PO SCH ×2 (09:00→21:48)
[2022-08-31] MEDS: METOPROLOL SUCC (TopROL XL) 100MG *XL* TAB PO SCH (09:00)
[2022-08-31 14:05] VITALS: BP 121/85; TEMP 98.4; O2SAT 100
[2022-08-31] MEDS: oxyCODONE 5MG TAB PO PRN (18:56)
[2022-08-31 20:00] VITALS: BP 124/81; TEMP 97.5; O2SAT 98
[2022-08-31] MEDS: GABAPENTIN 100 MG CAP PO SCH (21:47)
[2022-08-31] MEDS: PRAVASTATIN 20 MG TAB PO SCH (21:48)
[2022-08-31] MEDS: tiZANidine 4 MG TAB PO PRN (21:51)
[2022-09-01 04:38] VITALS: BP 125/76; TEMP 97.3; O2SAT 99
[2022-09-01] MEDS: oxyCODONE 5MG TAB PO PRN ×2 (05:16→19:52)
[2022-09-01] MEDS: LEVOTHYROXINE 100MCG TABLET (0.1MG) PO SCH (05:17)
[2022-09-01 05:29] LABS: BASO # 0.1 10^3/uL (0.0-0.2); BASO % 1.5 % (0.0-1.0); EOS # 0.2 10^3/uL (0.0-0.5); EOS % 4.1 % (0.0-3.0); HEMATOCRIT 32.3 % (36.0-47.0); HEMOGLOBIN 10.7 g/dl (12.0-15.5); LYMPH # 1.6 10^3/uL (1.5-5.0); LYMPH % 35.1 % (24.0-44.0); MEAN CORPUSCULAR HEMOGLOBIN 31.8 pg (27.0-33.0); MEAN CORPUSCULAR HGB CONC 33.1 g/dl (32.0-36.5); MEAN CORPUSCULAR VOLUME 96.1 fl (80.0-96.0); MONO # 0.4 10^3/uL (0.0-0.8); NEUTROPHILS # 2.3 10^3/uL (1.5-8.5); NEUTROPHILS % 49.9 % (36.0-66.0); PLATELET COUNT, AUTOMATED 256 10^3/uL (150-450); RED BLOOD COUNT 3.36 10^6/uL (4.00-5.40); WHITE BLOOD COUNT 4.7 10^3/uL (4.0-10.0)
[2022-09-01 05:54] LABS: BLOOD UREA NITROGEN 8 MG/DL (9-23); CALCIUM LEVEL 8.2 MG/DL (8.3-10.6); CARBON DIOXIDE LEVEL 28 MMOL/L (20-31); CHLORIDE LEVEL 98 MMOL/L (98-107); CREATININE FOR GFR 0.57 MG/DL (0.55-1.30); GLOMERULAR FILTRATION RATE > 60.0 (>45); GLUCOSE, FASTING 91 MG/DL (74-106); POTASSIUM SERUM 4.1 MMOL/L (3.5-5.1); SODIUM LEVEL 130 MMOL/L (136-145)
[2022-09-01 07:45] LABS: IRON (FE) 44 UG/DL (50-170); PERCENT SATURATION 17.5 % (13.2-45.0); TOTAL IRON BINDING CAPACITY 251 UG/DL (250-425)
[2022-09-01 07:47] LABS: VITAMIN B12 LEVEL 621 PG/ML (211-911)
[2022-09-01 07:48] LABS: FERRITIN 158.3 NG/ML (7.3-270.7); FOLATE 10.7 NG/ML (>5.4)
[2022-09-01] MEDS: NAPROXEN 250 MG TAB PO SCH ×2 (09:02→19:50)
[2022-09-01] MEDS: DOCUSATE SODIUM 100MG CAPSULE PO SCH ×2 (09:02→19:49)
[2022-09-01] MEDS: FAMOTIDINE 20 MG TAB PO SCH ×2 (09:02→19:49)
[2022-09-01] MEDS: lisinopriL 40MG TAB PO SCH (09:02)
[2022-09-01] MEDS: ACETAMINOPHEN 500 MG TAB PO SCH ×2 (09:02→19:50)
[2022-09-01] MEDS: GABAPENTIN 100 MG CAP PO SCH ×2 (09:02→19:49)
[2022-09-01] MEDS: METOPROLOL SUCC (TopROL XL) 100MG *XL* TAB PO SCH (09:02)
[2022-09-01] MEDS: LIDOCAINE 5% (LIDODERM) PATCH TD SCH (09:03)
[2022-09-01 14:14] VITALS: BP 146/88; TEMP 97.7; O2SAT 100
[2022-09-01] MEDS: tiZANidine 4 MG TAB PO PRN (19:49)
[2022-09-01] MEDS: PRAVASTATIN 20 MG TAB PO SCH (19:49)
[2022-09-01 20:23] VITALS: BP 145/87; TEMP 97; O2SAT 100
[2022-09-02] MEDS: LEVOTHYROXINE 100MCG TABLET (0.1MG) PO SCH (05:25)
[2022-09-02] MEDS: tiZANidine 4 MG TAB PO PRN ×2 (05:25→20:44)
[2022-09-02] MEDS: oxyCODONE 5MG TAB PO PRN ×2 (05:26→20:44)
[2022-09-02 06:07] VITALS: BP 147/66; TEMP 97.2; O2SAT 100
[2022-09-02 06:25] LABS: BASO % 0.8 % (0.0-1.0); EOS # 0.2 10^3/uL (0.0-0.5); HEMATOCRIT 30.1 % (36.0-47.0); HEMOGLOBIN 10.2 g/dl (12.0-15.5); LYMPH # 1.3 10^3/uL (1.5-5.0); LYMPH % 26.5 % (24.0-44.0); MEAN CORPUSCULAR HEMOGLOBIN 31.9 pg (27.0-33.0); MEAN CORPUSCULAR HGB CONC 33.9 g/dl (32.0-36.5); MEAN CORPUSCULAR VOLUME 94.1 fl (80.0-96.0); MONO # 0.4 10^3/uL (0.0-0.8); MONO % 7.6 % (2.0-8.0); NEUTROPHILS # 2.8 10^3/uL (1.5-8.5); NEUTROPHILS % 60.5 % (36.0-66.0); PLATELET COUNT, AUTOMATED 252 10^3/uL (150-450); WHITE BLOOD COUNT 4.7 10^3/uL (4.0-10.0)
[2022-09-02] MEDS: lisinopriL 40MG TAB PO SCH (09:00)
[2022-09-02] MEDS: METOPROLOL SUCC (TopROL XL) 100MG *XL* TAB PO SCH (09:00)
[2022-09-02] MEDS: LIDOCAINE 5% (LIDODERM) PATCH TD SCH ×2 (09:01→20:45)
[2022-09-02] MEDS: FAMOTIDINE 20 MG TAB PO SCH ×2 (09:02→20:44)
[2022-09-02] MEDS: ACETAMINOPHEN 500 MG TAB PO SCH ×2 (09:02→20:43)
[2022-09-02] MEDS: DOCUSATE SODIUM 100MG CAPSULE PO SCH ×2 (09:02→20:45)
[2022-09-02] MEDS: GABAPENTIN 100 MG CAP PO SCH ×2 (09:06→20:43)
[2022-09-02] MEDS: NAPROXEN 250 MG TAB PO SCH ×2 (09:07→20:45)
[2022-09-02 20:18] VITALS: BP 154/97; TEMP 97.7; O2SAT 100
[2022-09-02] MEDS: PRAVASTATIN 20 MG TAB PO SCH (20:44)
[2022-09-03 05:15] VITALS: BP 116/73; TEMP 97.5; O2SAT 98
[2022-09-03] MEDS: LEVOTHYROXINE 100MCG TABLET (0.1MG) PO SCH (05:46)
[2022-09-03] MEDS: FAMOTIDINE 20 MG TAB PO SCH ×2 (08:58→20:38)
[2022-09-03] MEDS: GABAPENTIN 100 MG CAP PO SCH ×2 (08:58→20:38)
[2022-09-03] MEDS: ACETAMINOPHEN 500 MG TAB PO SCH ×2 (08:59→20:37)
[2022-09-03] MEDS: DOCUSATE SODIUM 100MG CAPSULE PO SCH ×2 (08:59→20:36)
[2022-09-03] MEDS: NAPROXEN 250 MG TAB PO SCH ×2 (08:59→20:38)
[2022-09-03] MEDS: METOPROLOL SUCC (TopROL XL) 100MG *XL* TAB PO SCH (08:59)
[2022-09-03] MEDS: lisinopriL 40MG TAB PO SCH (08:59)
[2022-09-03] MEDS: tiZANidine 4 MG TAB PO PRN (16:16)
[2022-09-03] MEDS: oxyCODONE 5MG TAB PO PRN (20:37)
[2022-09-03] MEDS: PRAVASTATIN 20 MG TAB PO SCH (20:37)
[2022-09-04 05:24] VITALS: BP 131/76; TEMP 97.3; O2SAT 97
[2022-09-04] MEDS: LEVOTHYROXINE 100MCG TABLET (0.1MG) PO SCH (06:10)
[2022-09-04] MEDS: GABAPENTIN 100 MG CAP PO SCH ×2 (09:21→21:12)
[2022-09-04] MEDS: NAPROXEN 250 MG TAB PO SCH ×2 (09:22→21:12)
[2022-09-04] MEDS: FAMOTIDINE 20 MG TAB PO SCH ×2 (09:22→21:11)
[2022-09-04] MEDS: lisinopriL 40MG TAB PO SCH (09:22)
[2022-09-04] MEDS: ACETAMINOPHEN 500 MG TAB PO SCH ×2 (09:22→21:12)
[2022-09-04] MEDS: DOCUSATE SODIUM 100MG CAPSULE PO SCH ×2 (09:22→21:11)
[2022-09-04] MEDS: METOPROLOL SUCC (TopROL XL) 100MG *XL* TAB PO SCH (09:25)
[2022-09-04] MEDS: LIDOCAINE 5% (LIDODERM) PATCH TD SCH (09:25)
[2022-09-04] MEDS ORDERED: NAPR-849 PO (14:05)
[2022-09-04] MEDS ORDERED: ACET-683 PO (14:05)
[2022-09-04] MEDS ORDERED: GABA-1171 PO (14:05)
[2022-09-04] MEDS ORDERED: OXYC-517 PO (14:05)
[2022-09-04] MEDS ORDERED: FAMO20TA PO (14:05)
[2022-09-04] MEDS ORDERED: COLA100C5 PO (14:05)
[2022-09-04] MEDS ORDERED: TIZA10TA PO (14:05)
[2022-09-04] MEDS: PRAVASTATIN 20 MG TAB PO SCH (21:11)
[2022-09-04] MEDS: oxyCODONE 5MG TAB PO PRN (21:12)
[2022-09-05] MEDS: LEVOTHYROXINE 100MCG TABLET (0.1MG) PO SCH (06:04)
[2022-09-05 06:11] VITALS: BP 142/80; TEMP 98.1; O2SAT 96
[2022-09-05] MEDS: FAMOTIDINE 20 MG TAB PO SCH (09:22)
[2022-09-05] MEDS: DOCUSATE SODIUM 100MG CAPSULE PO SCH (09:22)
[2022-09-05] MEDS: ACETAMINOPHEN 500 MG TAB PO SCH (09:23)
[2022-09-05 09:24] VITALS: BP 142/80
[2022-09-05] MEDS: NAPROXEN 250 MG TAB PO SCH (09:24)
[2022-09-05] MEDS: METOPROLOL SUCC (TopROL XL) 100MG *XL* TAB PO SCH (09:24)
[2022-09-05] MEDS: GABAPENTIN 100 MG CAP PO SCH (09:24)
[2022-09-05] MEDS: lisinopriL 40MG TAB PO SCH (09:24)
[2022-09-05] MEDS: LIDOCAINE 5% (LIDODERM) PATCH TD SCH (09:25)
== END 2022-09-05 14:40 | disposition home health service (06) ==
LOC: EDBD 08:41 → M ED 08:41 → M ED INP 18:54 → INTOOBSV 18:54 → M MS5PR 21:20
PROVIDERS: ADMIT Family Medicine; ATTEND General Practice
DX: M87.051 Idiopathic aseptic necrosis of right femur (principal); M87.052 Idiopathic aseptic necrosis of left femur; M51.86 Other intervertebral disc disorders, lumbar region; D53.9 Nutritional anemia, unspecified; I10 Essential (primary) hypertension; Z59.00 Homelessness unspecified; E78.5 Hyperlipidemia, unspecified; E89.0 Postprocedural hypothyroidism; M51.36 Other intervertebral disc degeneration, lumbar region; M25.551 Pain in right hip; M25.552 Pain in left hip; M54.50 Low back pain, unspecified; G89.29 Other chronic pain; E11.9 Type 2 diabetes mellitus without complications; R26.2 Difficulty in walking, not elsewhere classified; F10.11 Alcohol abuse, in remission; J30.9 Allergic rhinitis, unspecified; K21.9 Gastro-esophageal reflux disease without esophagitis; F17.219 Nicotine dependence, cigarettes, with unspecified nicotine-induced disorders; Z79.899 Other long term (current) drug therapy; Z79.890 Hormone replacement therapy

== ENCOUNTER 2023-12-19 00:13 | Inpatient (IN) | payer OTHER ==
[~2023-12-19] VITALS: Ht 165.1 cm; Wt 75.0 kg
[~2023-12-19 00:13] MED LIST changes: +ACET-683 PO; +COLA100C5 PO; +FAMO20TA PO; +GABA-1171 PO; +LEVO100T5 PO; +METO1TAB33 PO; +NAPR-849 PO; +OXYC-517 PO; +TIZA10TA PO
[2023-12-19] MEDS: LEVOTHYROXINE 100MCG TABLET (0.1MG) PO SCH (06:00)
[2023-12-19] MEDS: ACETAMINOPHEN 325 MG TAB PO ONE (06:20)
[2023-12-19] MEDS: KETOROLAC 30 MG/ML 1ML VIAL IM ONE (06:20)
[2023-12-19] MEDS: tiZANidine 4 MG TAB PO ONE (07:41)
[2023-12-19] MEDS ORDERED: ACET650T15 PO (08:16)
[2023-12-19] MEDS ORDERED: ACET-683 PO (08:16)
[2023-12-19] MEDS ORDERED: HOME MED LIST COMPLETE! XX SCH (08:20)
[2023-12-19] MEDS: METOPROLOL SUCC (TopROL XL) 100MG *XL* TAB PO ONE (08:39)
[2023-12-19] MEDS ORDERED: lisinopriL 40MG TAB PO SCH (09:00)
[2023-12-19] MEDS ORDERED: METOPROLOL SUCC (TopROL XL) 100MG *XL* TAB PO SCH (09:00)
[2023-12-19] MEDS: ALPRAZolam 0.25 MG TAB PO ONE (09:15)
[2023-12-19] MEDS ORDERED: LORazepam 2 MG TAB PO PRN (12:50)
[2023-12-19 14:00] VITALS: O2SAT 98
[2023-12-19 14:03] LABS: HEMATOCRIT 30.9 % (36.0-47.0); HEMOGLOBIN 10.6 g/dl (12.0-15.5); MEAN CORPUSCULAR HEMOGLOBIN 36.3 pg (27.0-33.0); MEAN CORPUSCULAR HGB CONC 34.3 g/dl (32.0-36.5); MEAN CORPUSCULAR VOLUME 105.8 fl (80.0-96.0); PLATELET COUNT, AUTOMATED 158 10^3/uL (150-450); RED BLOOD COUNT 2.92 10^6/uL (4.00-5.40); WHITE BLOOD COUNT 3.8 10^3/uL (4.0-10.0)
[2023-12-19 14:24] LABS: ALBUMIN 3.1 G/DL (3.2-5.2); ALKALINE PHOSPHATASE 91 U/L (35-104); ALT/SGPT 22 U/L (7.0-40); AST/SGOT 36 U/L (<34); BILIRUBIN,TOTAL 0.8 MG/DL (0.3-1.2); BLOOD UREA NITROGEN 13 MG/DL (9-23); CALCIUM LEVEL 9.5 MG/DL (8.3-10.6); CARBON DIOXIDE LEVEL 23 MMOL/L (20-31); CHLORIDE LEVEL 99 MMOL/L (98-107); CREATININE FOR GFR 0.67 MG/DL (0.55-1.30); GLOMERULAR FILTRATION RATE > 60.0 (>45); GLUCOSE, FASTING 116 MG/DL (74-106); POTASSIUM SERUM 4.5 MMOL/L (3.5-5.1); SODIUM LEVEL 129 MMOL/L (136-145); TOTAL PROTEIN 6.3 G/DL (5.7-8.2)
[2023-12-19] MEDS: FOLIC ACID 1MG TAB PO SCH (16:31)
[2023-12-19] MEDS: ACETAMINOPHEN 650MG ER TAB (TYLENOL ARTHRITIS) PO SCH (16:31)
[2023-12-19] MEDS: MULTIVITAMINS/MINERALS THERAP 1 TAB PO SCH (16:32)
[2023-12-19 17:20] VITALS: BP 97/70; TEMP 97.7
[2023-12-19 17:59] LABS: BASO % 0.8 % (0.0-1.0); EOS % 0.3 % (0.0-3.0); LYMPH # 0.6 10^3/uL (1.5-5.0); LYMPH % 15.5 % (24.0-44.0); MONO # 0.3 10^3/uL (0.0-0.8); MONO % 8.4 % (2.0-8.0); NEUTROPHILS # 2.8 10^3/uL (1.5-8.5); NEUTROPHILS % 73.9 % (36.0-66.0)
[2023-12-19 18:37] LABS: PERCENT SATURATION 22.8 % (13.2-45.0)
[2023-12-19 18:38] LABS: FERRITIN 134.3 NG/ML (7.3-270.7)
[2023-12-19 18:41] LABS: FOLATE 22.77 NG/ML (>5.4)
[2023-12-19 20:00] VITALS: BP 101/62
[2023-12-19] MEDS: NYSTATIN OINTMENT 15 GM TOP SCH (20:18)
[2023-12-19] MEDS: THIAMINE 100 MG TAB PO SCH (20:18)
[2023-12-19] MEDS: PRAVASTATIN 20 MG TAB PO SCH (20:18)
[2023-12-19 20:36] VITALS: BP 101/62; TEMP 97.7; O2SAT 95
[2023-12-20] MEDS: PERCOCET 5MG/325MG TAB PO PRN (03:01)
[2023-12-20 05:10] VITALS: BP 104/61; TEMP 97.3; O2SAT 95
[2023-12-20 05:28] VITALS: BP 104/61
[2023-12-20 06:56] LABS: HEMOGLOBIN 10.9 g/dl (12.0-15.5); MEAN CORPUSCULAR HEMOGLOBIN 36.9 pg (27.0-33.0); MEAN CORPUSCULAR HGB CONC 34.1 g/dl (32.0-36.5); MEAN CORPUSCULAR VOLUME 108.5 fl (80.0-96.0); PLATELET COUNT, AUTOMATED 154 10^3/uL (150-450); RED BLOOD COUNT 2.95 10^6/uL (4.00-5.40); WHITE BLOOD COUNT 5.4 10^3/uL (4.0-10.0)
[2023-12-20 07:25] LABS: CALCIUM LEVEL 9.7 MG/DL (8.3-10.6); CREATININE FOR GFR 1.34 MG/DL (0.55-1.30); GLOMERULAR FILTRATION RATE 42.8 (>45); POTASSIUM SERUM 4.6 MMOL/L (3.5-5.1)
[2023-12-20] MEDS: METOPROLOL SUCC (TopROL XL) 100MG *XL* TAB PO SCH (08:18)
[2023-12-20] MEDS: lisinopriL 40MG TAB PO SCH (08:19)
[2023-12-20] MEDS: ENOXAPARIN 40MG/0.4ML SYRINGE (J1650 PER 10MG) SC SCH (08:20)
[2023-12-20 09:31] LABS: THYROID STIMULATING HORMONE 0.814 uIU/ML (0.55-4.78)
[2023-12-20 10:39] LABS: HEMOGLOBIN A1c 4.6 % (4.0-6.0)
[2023-12-20] MEDS: NS 1,000 ML IV SCH (11:30)
[2023-12-20 12:00] VITALS: BP 106/64; TEMP 98.1; O2SAT 100
[2023-12-20 14:00] VITALS: BP 106/64
[2023-12-20 19:51] VITALS: BP 114/65; TEMP 97.7; O2SAT 99
[2023-12-21] VITALS (7 sets, daily range): BP systolic 130–176; BP diastolic 71–97; TEMP 97.5–97.9; O2SAT 99–100
[2023-12-21] MEDS: PERCOCET 5MG/325MG TAB PO PRN (05:11)
[2023-12-21 07:54] LABS: BASO % 0.9 % (0.0-1.0); EOS # 0.1 10^3/uL (0.0-0.5); EOS % 1.4 % (0.0-3.0); HEMATOCRIT 28.7 % (36.0-47.0); HEMOGLOBIN 9.3 g/dl (12.0-15.5); LYMPH # 0.7 10^3/uL (1.5-5.0); LYMPH % 15.9 % (24.0-44.0); MEAN CORPUSCULAR HEMOGLOBIN 35.5 pg (27.0-33.0); MEAN CORPUSCULAR HGB CONC 32.4 g/dl (32.0-36.5); MEAN CORPUSCULAR VOLUME 109.5 fl (80.0-96.0); MONO # 0.5 10^3/uL (0.0-0.8); MONO % 10.5 % (2.0-8.0); NEUTROPHILS # 3.1 10^3/uL (1.5-8.5); NEUTROPHILS % 70.4 % (36.0-66.0); PLATELET COUNT, AUTOMATED 133 10^3/uL (150-450); RED BLOOD COUNT 2.62 10^6/uL (4.00-5.40); WHITE BLOOD COUNT 4.4 10^3/uL (4.0-10.0)
[2023-12-21 08:08] LABS: BLOOD UREA NITROGEN 14 MG/DL (9-23); CALCIUM LEVEL 8.5 MG/DL (8.3-10.6); CARBON DIOXIDE LEVEL 21 MMOL/L (20-31); CHLORIDE LEVEL 107 MMOL/L (98-107); CREATININE FOR GFR 0.63 MG/DL (0.55-1.30); GLOMERULAR FILTRATION RATE > 60.0 (>45); GLUCOSE, FASTING 95 MG/DL (74-106); POTASSIUM SERUM 4.2 MMOL/L (3.5-5.1); SODIUM LEVEL 134 MMOL/L (136-145)
[2023-12-21] MEDS: amLODIPine 5 MG TAB PO ONE ×2 (10:42→14:16)
[2023-12-21] MEDS ORDERED: oxyCODONE 5MG TAB PO PRN (21:55)
[2023-12-21] MEDS: ACETAMINOPHEN 325 MG TAB PO ONE (22:02)
[2023-12-22 03:17] VITALS: BP 158/82; TEMP 97.7; O2SAT 96
[2023-12-22 07:35] LABS: HEMATOCRIT 28.9 % (36.0-47.0); HEMOGLOBIN 9.5 g/dl (12.0-15.5); MEAN CORPUSCULAR HEMOGLOBIN 36.5 pg (27.0-33.0); MEAN CORPUSCULAR HGB CONC 32.9 g/dl (32.0-36.5); MEAN CORPUSCULAR VOLUME 111.2 fl (80.0-96.0); PLATELET COUNT, AUTOMATED 138 10^3/uL (150-450)
[2023-12-22] MEDS ORDERED: amLODIPine 5 MG TAB PO SCH (09:00)
[2023-12-22] MEDS: NYSTATIN 100,000 UNITS/GM TOPICAL PWD 15GM TOP SCH (20:40)
[2023-12-23] MEDS: oxyCODONE 5MG TAB PO PRN (02:06)
[2023-12-23 04:09] VITALS: BP 168/94; TEMP 97.3; O2SAT 99
[2023-12-23 05:04] VITALS: BP 147/79
[2023-12-23] MEDS: FLUCONAZOLE 50MG TABLET PO SCH (08:26)
[2023-12-23] MEDS: LACTIC ACID 12% LOTION 225 GM BTL EXT SCH (08:28)
[2023-12-23 09:00] VITALS: BP 138/90
[2023-12-23 11:50] VITALS: BP 136/90; TEMP 97.7
[2023-12-23] MEDS ORDERED: OXYC-517 PO (19:36)
[2023-12-23] MEDS ORDERED: Multivitamins PO (19:36)
[2023-12-23] MEDS ORDERED: NYST10006 TOP (19:36)
[2023-12-23] MEDS ORDERED: COLA100C5 PO (19:36)
[2023-12-23] MEDS ORDERED: AMLO1TAB25 PO (19:36)
[2023-12-23] MEDS ORDERED: SENN8.6T58 PO (19:36)
[2023-12-24 04:21] VITALS: BP 107/61; TEMP 97.5; O2SAT 96
[2023-12-24 06:09] VITALS: BP 112/77; TEMP 97.3; O2SAT 97
[2023-12-24 09:00] VITALS: BP 112/77
== END 2023-12-24 14:37 | DRG 342 ==
LOC: M ED 00:13 → M ED INP 12:23 → M MS5PR 16:55 → OBSVTOIN 12-20 10:11
PROVIDERS: ADMIT Internal Medicine; ATTEND Internal Medicine
DX: S82.134A Nondisplaced fracture of medial condyle of right tibia, initial encounter for closed fracture (principal); N17.9 Acute kidney failure, unspecified; E87.1 Hypo-osmolality and hyponatremia; I10 Essential (primary) hypertension; F10.20 Alcohol dependence, uncomplicated; B37.2 Candidiasis of skin and nail; E03.9 Hypothyroidism, unspecified; E78.5 Hyperlipidemia, unspecified; Z79.890 Hormone replacement therapy; Z79.899 Other long term (current) drug therapy; M16.11 Unilateral primary osteoarthritis, right hip; K52.9 Noninfective gastroenteritis and colitis, unspecified; F17.200 Nicotine dependence, unspecified, uncomplicated; X50.1XXA Overexertion from prolonged static or awkward postures, initial encounter; Y92.009 Unspecified place in unspecified non-institutional (private) residence as the place of occurrence of the external cause; Y93.89 Activity, other specified; Y99.8 Other external cause status

== ENCOUNTER → 2024-02-01 | Outpatient (CLI) | payer OTHER, MEDICAID ==
[~2024-02-01] MED LIST changes: +ACET650T15 PO; +AMLO1TAB25 PO; +Multivitamins PO; +NYST10006 TOP; +SENN8.6T58 PO
== END ==
LOC: M SOG 13:05
PROVIDERS: ATTEND Physician Assistant
DX: M25.561 Pain in right knee (principal); M25.562 Pain in left knee

== ENCOUNTER → 2024-03-14 | Outpatient (CLI) | payer OTHER, MEDICAID | LOC: M SOG 07:52 | PROVIDERS: ATTEND Orthopaedic Surgery | DX: M16.11 Unilateral primary osteoarthritis, right hip (principal) ==

== ENCOUNTER → 2024-04-27 | Outpatient (CLI) | payer OTHER ==
[2024-04-27 14:42] LABS: BASO # 0.1 10^3/uL (0.0-0.2); BASO % 1.3 % (0.0-1.0); EOS # 0.1 10^3/uL (0.0-0.5); EOS % 2.1 % (0.0-3.0); HEMOGLOBIN 12.3 g/dl (12.0-15.5); LYMPH # 0.8 10^3/uL (1.5-5.0); LYMPH % 21.7 % (24.0-44.0); MEAN CORPUSCULAR HEMOGLOBIN 33.5 pg (27.0-33.0); MEAN CORPUSCULAR HGB CONC 34.2 g/dl (32.0-36.5); MEAN CORPUSCULAR VOLUME 98.1 fl (80.0-96.0); MONO # 0.5 10^3/uL (0.0-0.8); MONO % 12.3 % (2.0-8.0); NEUTROPHILS # 2.4 10^3/uL (1.5-8.5); NEUTROPHILS % 62.1 % (36.0-66.0); PLATELET COUNT, AUTOMATED 244 10^3/uL (150-450); RED BLOOD COUNT 3.67 10^6/uL (4.00-5.40); WHITE BLOOD COUNT 3.8 10^3/uL (4.0-10.0)
[2024-04-27 14:50] LABS: ERYTHROCYTE SEDIMENTATION RATE 31 mm/hr (0-30)
[2024-04-27 14:53] LABS: INR 0.94; PROTHROMBIN TIME 12.8 SECONDS (12.5-14.5)
[2024-04-27 15:21] LABS: ALBUMIN 3.7 G/DL (3.2-5.2); ALKALINE PHOSPHATASE 84 U/L (35-104); ALT/SGPT 27 U/L (7.0-40); AST/SGOT 40 U/L (<34); BILIRUBIN,TOTAL 0.6 MG/DL (0.3-1.2); BLOOD UREA NITROGEN 8 MG/DL (9-23); C REACTIVE PROTEIN QUANTITATIV < 0.50 MG/DL (<1.0); CALCIUM LEVEL 9.2 MG/DL (8.3-10.6); CARBON DIOXIDE LEVEL 26 MMOL/L (20-31); CHLORIDE LEVEL 96 MMOL/L (98-107); GLOMERULAR FILTRATION RATE > 60.0 (>45); GLUCOSE, FASTING 89 MG/DL (74-106); POTASSIUM SERUM 3.9 MMOL/L (3.5-5.1); SODIUM LEVEL 133 MMOL/L (136-145); TOTAL PROTEIN 7.4 G/DL (5.7-8.2)
[2024-04-27 15:24] LABS: TOTAL 25(OH) VITAMIN D 8.7 NG/ML (20.0-100.0)
[2024-04-27 15:53] LABS: HEMOGLOBIN A1c 4.8 % (4.0-6.0)
== END ==
LOC: M PLAIMG 13:38
PROVIDERS: ATTEND Orthopaedic Surgery
DX: M87.052 Idiopathic aseptic necrosis of left femur (principal)

== ENCOUNTER → 2024-04-27 | Outpatient (CLI) | payer OTHER | LOC: M WHC 14:03 | PROVIDERS: ATTEND Orthopaedic Surgery | DX: M87.052 Idiopathic aseptic necrosis of left femur (principal) ==

== ENCOUNTER → 2024-05-23 | Outpatient (REF) | payer OTHER | LOC: M LAB REF 17:12 | PROVIDERS: ATTEND Nurse Practitioner Adult Health | DX: M81.0 Age-related osteoporosis without current pathological fracture (principal) ==

== ENCOUNTER 2024-07-30 21:30 | Inpatient (IN) | payer OTHER, MEDICAID ==
[~2024-07-30] VITALS: Ht 162.6 cm; Wt 66.6 kg
[~2024-07-30 21:30] MED LIST changes: +LISI40TA10; +LISI40TA10 PO; -LISI40TA4; -LISI40TA4 PO; -PRAV20TA2; -PRAV20TA2 PO; +PRAV20TA78; +PRAV20TA78 PO
[2024-07-30] MEDS: oxyCODONE 5MG TAB PO ONE (23:06)
[2024-07-30] MEDS: KETOROLAC 30 MG/ML 1 ML VIAL IV ONE (23:06)
[2024-07-30] MEDS ORDERED: ACETAMINOPHEN *IV* 1,000 MG in IV 1 EA IV ONE (23:10)
[2024-07-31] MEDS: oxyCODONE 5MG TAB PO ONE (02:19)
[2024-07-31 02:34] LABS: BASO % 0.6 % (0.0-1.0); EOS % 0.3 % (0.0-3.0); HEMATOCRIT 33.1 % (36.0-47.0); HEMOGLOBIN 11.6 g/dl (12.0-15.5); LYMPH # 0.9 10^3/uL (1.5-5.0); MEAN CORPUSCULAR HEMOGLOBIN 36.6 pg (27.0-33.0); MEAN CORPUSCULAR VOLUME 104.4 fl (80.0-96.0); MONO # 0.5 10^3/uL (0.0-0.8); MONO % 8.1 % (2.0-8.0); NEUTROPHILS # 4.7 10^3/uL (1.5-8.5); NEUTROPHILS % 75.4 % (36.0-66.0); PLATELET COUNT, AUTOMATED 181 10^3/uL (150-450); RED BLOOD COUNT 3.17 10^6/uL (4.00-5.40); WHITE BLOOD COUNT 6.3 10^3/uL (4.0-10.0)
[2024-07-31 03:07] LABS: BLOOD UREA NITROGEN 6 MG/DL (9-23); CALCIUM LEVEL 8.9 MG/DL (8.3-10.6); CARBON DIOXIDE LEVEL 24 MMOL/L (20-31); CHLORIDE LEVEL 94 MMOL/L (98-107); CREATININE FOR GFR 0.49 MG/DL (0.55-1.30); GLOMERULAR FILTRATION RATE > 90.0 (>45); GLUCOSE, FASTING 100 MG/DL (74-106); POTASSIUM SERUM 4.6 MMOL/L (3.5-5.1); SODIUM LEVEL 128 MMOL/L (136-145)
[2024-07-31] MEDS ORDERED: ACETAMINOPHEN 325 MG TAB PO PRN (04:50)
[2024-07-31] MEDS ORDERED: MAALOX 30 ML SUSP *UDC PO PRN (04:50)
[2024-07-31] MEDS ORDERED: MOM 30 ML SUSPENSION UDC PO PRN (04:50)
[2024-07-31] MEDS ORDERED: D 1010002 PO (05:00)
[2024-07-31] MEDS ORDERED: LISI40TA10 PO (05:00)
[2024-07-31] MEDS ORDERED: TRAM50TA2 PO (05:00)
[2024-07-31] MEDS ORDERED: ISOVUE-370 76% 100 ML VIAL As Ordered ONE (05:01)
[2024-07-31 05:05] LABS: ERYTHROCYTE SEDIMENTATION RATE 32 mm/hr (0-30)
[2024-07-31] MEDS ORDERED: HOME MED LIST COMPLETE! XX SCH (05:05)
[2024-07-31 05:14] LABS: URIC ACID 5.1 MG/DL (3.1-7.8)
[2024-07-31 05:15] LABS: ETHYL ALCOHOL (ETHANOL) 0.003 % (0.000-0.010)
[2024-07-31 05:17] LABS: ALBUMIN 3.6 G/DL (3.2-5.2); ALKALINE PHOSPHATASE 140 U/L (35-104); ALT/SGPT 46 U/L (7.0-40); AST/SGOT 98 U/L (<34); BILIRUBIN,DIRECT 0.4 MG/DL (<0.4); BILIRUBIN,TOTAL 0.8 MG/DL (0.3-1.2); C REACTIVE PROTEIN QUANTITATIV < 0.50 MG/DL (<1.0)
[2024-07-31 05:25] LABS: HEMOGLOBIN A1c 4.8 % (4.0-6.0)
[2024-07-31] MEDS: HEPARIN SOD 5000 UNITS/ML 1 ML VIAL/SYRINGE SC SCH (06:27)
[2024-07-31 06:59] LABS: INR 0.98; PARTIAL THROMBOPLASTIN TIME 30.2 SECONDS (24.8-34.2); PROTHROMBIN TIME 13.3 SECONDS (12.5-14.5)
[2024-07-31] MEDS: MORPHINE 2 MG/ML 1 ML VIAL IV ONE (08:05)
[2024-07-31] MEDS: LORazepam 2 MG TAB PO PRN (09:14)
[2024-07-31] MEDS: FOLIC ACID 1 MG TAB PO SCH (09:14)
[2024-07-31] MEDS: THIAMINE 100 MG TAB PO SCH (09:14)
[2024-07-31] MEDS: MULTIVITAMINS/MINERALS THERAP 1 TAB PO SCH (09:14)
[2024-08-01 07:14] LABS: HEMATOCRIT 32.6 % (36.0-47.0); HEMOGLOBIN 11.1 g/dl (12.0-15.5); MEAN CORPUSCULAR HEMOGLOBIN 36.9 pg (27.0-33.0); MEAN CORPUSCULAR VOLUME 108.3 fl (80.0-96.0); PLATELET COUNT, AUTOMATED 152 10^3/uL (150-450); RED BLOOD COUNT 3.01 10^6/uL (4.00-5.40); WHITE BLOOD COUNT 3.5 10^3/uL (4.0-10.0)
[2024-08-01 07:47] LABS: ALBUMIN 3.4 G/DL (3.2-5.2); ALKALINE PHOSPHATASE 124 U/L (35-104); ALT/SGPT 33 U/L (7.0-40); AST/SGOT 54 U/L (<34); BILIRUBIN,TOTAL 0.9 MG/DL (0.3-1.2); BLOOD UREA NITROGEN 12 MG/DL (9-23); CALCIUM LEVEL 9.5 MG/DL (8.3-10.6); CARBON DIOXIDE LEVEL 24 MMOL/L (20-31); CHLORIDE LEVEL 97 MMOL/L (98-107); CREATININE FOR GFR 0.48 MG/DL (0.55-1.30); GLOMERULAR FILTRATION RATE > 90.0 (>45); GLUCOSE, FASTING 96 MG/DL (74-106); MAGNESIUM LEVEL 1.7 MG/DL (1.8-2.4); POTASSIUM SERUM 4.4 MMOL/L (3.5-5.1); SODIUM LEVEL 132 MMOL/L (136-145); TOTAL PROTEIN 6.5 G/DL (5.7-8.2)
[2024-08-01] MEDS: LR 1,000 ML IV ONE (09:18)
[2024-08-01 17:40] VITALS: BP 160/107; TEMP 97.7; O2SAT 99
[2024-08-01 17:50] VITALS: O2SAT 100
[2024-08-01] MEDS ORDERED: DEXTROSE 50% 50 ML SYRINGE IV PRN (18:55)
[2024-08-01] MEDS ORDERED: GLUCOSE 4 GM CHEW PO PRN (18:55)
[2024-08-01] MEDS ORDERED: GLUCAGON INJ 1 MG VIAL SC PRN (18:55)
[2024-08-01 18:56] VITALS: BP 160/107
[2024-08-01] MEDS: PERCOCET 5MG/325MG TAB PO PRN (19:04)
[2024-08-01 20:00] VITALS: BP 154/89; TEMP 97.7; O2SAT 99
[2024-08-01 20:40] VITALS: BP 156/89
[2024-08-02] VITALS (9 sets, daily range): BP systolic 121–173; BP diastolic 76–99; TEMP 97.5–97.9; O2SAT 96–100
[2024-08-02] MEDS: CARVedilol 3.125 MG TAB PO SCH (11:08)
[2024-08-03] VITALS (9 sets, daily range): BP systolic 122–161; BP diastolic 63–96; TEMP 97.5–98.2; O2SAT 94–99
[2024-08-03] MEDS: METOPROLOL SUCC. 100 MG *XL* TAB PO SCH (21:52)
[2024-08-03] MEDS: lisinopriL 40 MG TAB PO SCH (21:52)
[2024-08-03] MEDS: PRAVASTATIN 20 MG TAB PO SCH (21:52)
[2024-08-03] MEDS: LEVOTHYROXINE 100 MCG TABLET (0.1 MG) PO SCH (21:52)
[2024-08-04] VITALS (10 sets, daily range): BP systolic 114–165; BP diastolic 69–92; TEMP 97.4–98.8; O2SAT 95–99
[2024-08-04 09:59] LABS: BASO % 1.2 % (0.0-1.0); EOS # 0.1 10^3/uL (0.0-0.5); EOS % 2.8 % (0.0-3.0); HEMATOCRIT 31.5 % (36.0-47.0); HEMOGLOBIN 10.4 g/dl (12.0-15.5); LYMPH # 0.4 10^3/uL (1.5-5.0); LYMPH % 12.8 % (24.0-44.0); MEAN CORPUSCULAR VOLUME 112.1 fl (80.0-96.0); MONO # 0.4 10^3/uL (0.0-0.8); MONO % 12.2 % (2.0-8.0); NEUTROPHILS # 2.3 10^3/uL (1.5-8.5); NEUTROPHILS % 70.1 % (36.0-66.0); PLATELET COUNT, AUTOMATED 150 10^3/uL (150-450); RED BLOOD COUNT 2.81 10^6/uL (4.00-5.40); WHITE BLOOD COUNT 3.3 10^3/uL (4.0-10.0)
[2024-08-04 10:28] LABS: ALBUMIN 3.1 G/DL (3.2-5.2); ALKALINE PHOSPHATASE 117 U/L (35-104); ALT/SGPT 24 U/L (7.0-40); AST/SGOT 31 U/L (<34); BILIRUBIN,TOTAL 0.6 MG/DL (0.3-1.2); BLOOD UREA NITROGEN 8 MG/DL (9-23); CALCIUM LEVEL 8.7 MG/DL (8.3-10.6); CARBON DIOXIDE LEVEL 28 MMOL/L (20-31); CHLORIDE LEVEL 95 MMOL/L (98-107); CREATININE FOR GFR 0.46 MG/DL (0.55-1.30); GLOMERULAR FILTRATION RATE > 90.0 (>45); GLUCOSE, FASTING 122 MG/DL (74-106); POTASSIUM SERUM 3.9 MMOL/L (3.5-5.1); SODIUM LEVEL 132 MMOL/L (136-145); TOTAL PROTEIN 6.3 G/DL (5.7-8.2)
[2024-08-04] MEDS: LIDOCAINE 5% PATCH TD ONE (11:13)
[2024-08-05 00:40] VITALS: BP 121/79; TEMP 97.7; O2SAT 98
[2024-08-05 04:10] VITALS: BP 118/79; TEMP 97.2; O2SAT 93
[2024-08-05 05:05] LABS: HEMATOCRIT 29.1 % (36.0-47.0); HEMOGLOBIN 9.5 g/dl (12.0-15.5); MEAN CORPUSCULAR HGB CONC 32.6 g/dl (32.0-36.5); MEAN CORPUSCULAR VOLUME 110.2 fl (80.0-96.0); PLATELET COUNT, AUTOMATED 145 10^3/uL (150-450); RED BLOOD COUNT 2.64 10^6/uL (4.00-5.40); WHITE BLOOD COUNT 3.5 10^3/uL (4.0-10.0)
[2024-08-05 05:29] LABS: ALBUMIN 2.8 G/DL (3.2-5.2); BLOOD UREA NITROGEN 9 MG/DL (9-23); CALCIUM LEVEL 8.3 MG/DL (8.3-10.6); CARBON DIOXIDE LEVEL 27 MMOL/L (20-31); CHLORIDE LEVEL 98 MMOL/L (98-107); CREATININE FOR GFR 0.52 MG/DL (0.55-1.30); GLOMERULAR FILTRATION RATE > 90.0 (>45); GLUCOSE, FASTING 90 MG/DL (74-106); PHOSPHORUS LEVEL 4.6 MG/DL (2.4-5.1); POTASSIUM SERUM 4.1 MMOL/L (3.5-5.1); SODIUM LEVEL 133 MMOL/L (136-145)
[2024-08-05 06:00] VITALS: BP 118/79
[2024-08-05 08:00] VITALS: BP 137/86; TEMP 97.7; O2SAT 98
[2024-08-05 12:00] VITALS: BP 134/80; TEMP 97.5; O2SAT 98
[2024-08-05 14:00] VITALS: BP 134/80
[2024-08-05] MEDS: PERCOCET 5MG/325MG TAB PO PRN (16:08)
== END 2024-08-05 16:26 | disposition home or self-care (01) | DRG 351 ==
LOC: M ED 21:30 → M ED INP 08-01 14:07 → M MSPAV 08-01 17:38
PROVIDERS: ADMIT Student in an Organized Health Care Education/Training Program; ATTEND Family Medicine
PROC: B246ZZZ Ultrasonography of Right and Left Heart (ICD-10-PCS; principal; 2024-08-01)
DX: R26.2 Difficulty in walking, not elsewhere classified (principal); E87.1 Hypo-osmolality and hyponatremia; I10 Essential (primary) hypertension; S80.02XA Contusion of left knee, initial encounter; M25.552 Pain in left hip; M25.551 Pain in right hip; W19.XXXA Unspecified fall, initial encounter; Y92.9 Unspecified place or not applicable; K21.9 Gastro-esophageal reflux disease without esophagitis; M54.9 Dorsalgia, unspecified; M16.0 Bilateral primary osteoarthritis of hip; F41.9 Anxiety disorder, unspecified; E11.51 Type 2 diabetes mellitus with diabetic peripheral angiopathy without gangrene; E03.9 Hypothyroidism, unspecified; E78.5 Hyperlipidemia, unspecified; M81.0 Age-related osteoporosis without current pathological fracture; F17.290 Nicotine dependence, other tobacco product, uncomplicated; I73.9 Peripheral vascular disease, unspecified; Z79.890 Hormone replacement therapy; Z79.899 Other long term (current) drug therapy; F10.90 Alcohol use, unspecified, uncomplicated; R00.0 Tachycardia, unspecified

== ENCOUNTER → 2024-09-09 | Outpatient (CLI) | payer OTHER ==
[~2024-09-09] MED LIST changes: +ACET-1515 PO; -ACET650T15 PO; +ADVI200T PO; +D 1010002 PO; +HYDR12.510; +HYDR12.510 PO; -HYDR12CA; -HYDR12CA PO; +TRAM50TA2 PO
== END ==
LOC: M RAD 14:26
PROVIDERS: ATTEND Orthopaedic Surgery
DX: M16.0 Bilateral primary osteoarthritis of hip (principal); S32.050A Wedge compression fracture of fifth lumbar vertebra, initial encounter for closed fracture; K57.30 Diverticulosis of large intestine without perforation or abscess without bleeding

== ENCOUNTER 2024-09-26 09:25 | Observation (INO) | payer OTHER ==
[2024-09-26] VITALS (10 sets, daily range): BP systolic 128–185; BP diastolic 80–104; TEMP 97.7–98.2; O2SAT 97–99
[~2024-09-26] VITALS: Ht 154.9 cm; Wt 70.3 kg
[~2024-09-26 09:25] MED LIST changes: +LIDOCAINE 2% 100 MG/5 ML SDV (FOR ANES.) As Ordered ONE; +MIDAZOLAM INJ 2 MG/2 ML VIAL As Ordered ONE; +ROCURONIUM BROMIDE 50MG/5ML VIAL As Ordered ONE
[2024-09-26] MEDS ORDERED: ACET-897 PO (10:08)
[2024-09-26] MEDS ORDERED: MUPI2OI NARES (10:08)
[2024-09-26] MEDS ORDERED: HOME MED LIST COMPLETE! XX SCH (10:10)
[2024-09-26] MEDS: LR 1,000 ML IV SCH ×2 (10:21→12:40)
[2024-09-26] MEDS: ceFAZolin SODIUM 2 GM in DEXTROSE 5% (D5W) ADV/MINI-BAG 50 ML IV ONE (10:52)
[2024-09-26] MEDS: TRANEXAMIC ACID 100 MG/ML 10ML VIAL As Ordered ONE (11:10)
[2024-09-26] MEDS ORDERED: SUGAMMADEX SODIUM 500 MG/5 ML VIAL As Ordered ONE (11:43)
[2024-09-26] MEDS ORDERED: KETOROLAC 30 MG/ML 1 ML VIAL As Ordered ONE (11:44)
[2024-09-26] MEDS ORDERED: ACETAMINOPHEN 1000MG/100ML IV BAG As Ordered ONE (11:44)
[2024-09-26] MEDS ORDERED: dexAMETHasone 4 MG/ML 1 ML VIAL As Ordered ONE (11:44)
[2024-09-26] MEDS ORDERED: ONDANSETRON 4MG 2ML VIAL As Ordered ONE (11:44)
[2024-09-26] MEDS ORDERED: HYDROmorphone HCL 2 MG/ML 1 ML VIAL As Ordered ONE (12:18)
[2024-09-26] MEDS: VANCOMYCIN 1000MG/20ML VIAL As Ordered ONE (12:25)
[2024-09-26] MEDS: REK 50ML SYRINGE IA ONE (12:30)
[2024-09-26] MEDS ORDERED: diphenhydrAMINE 50 MG/ML VIAL IV PRN (12:40)
[2024-09-26] MEDS ORDERED: SENNA 8.6 MG TAB PO PRN (12:45)
[2024-09-26] MEDS: ONDANSETRON 4MG 2ML VIAL IV PRN (13:48)
[2024-09-26] MEDS: HYDROMORPHONE HCL 0.5 MG/0.5 ML SYRINGE IV PRN (13:49)
[2024-09-26] MEDS: ACETAMINOPHEN 325 MG TAB PO SCH (17:19)
[2024-09-26] MEDS: PRAVASTATIN 20 MG TAB PO SCH (20:49)
[2024-09-26] MEDS: ceFAZolin SODIUM 2 GM in DEXTROSE 5% (D5W) ADV/MINI-BAG 50 ML IV SCH (20:49)
[2024-09-26] MEDS: LEVOTHYROXINE 100 MCG TABLET (0.1 MG) PO SCH (20:50)
[2024-09-26] MEDS: DOCUSATE SODIUM 100 MG CAPSULE PO SCH (20:50)
[2024-09-26] MEDS: ASPIRIN 81 MG ENTERIC TABLET PO SCH (20:50)
[2024-09-26] MEDS: METOPROLOL SUCC. 100 MG *XL* TAB PO SCH (20:55)
[2024-09-27 05:18] VITALS: BP 99/58; TEMP 96.6; O2SAT 97
[2024-09-27 07:55] LABS: PLATELET COUNT, AUTOMATED 221 10^3/uL (150-450)
[2024-09-27 08:00] VITALS: BP 120/69; TEMP 97.9; O2SAT 97
[2024-09-27] MEDS: FERROUS SULFATE 325 MG TAB PO SCH (08:06)
[2024-09-27] MEDS: CEFDINIR 300 MG CAP PO SCH (08:06)
[2024-09-27] MEDS: ASCORBIC ACID 500 MG TAB PO SCH (08:06)
[2024-09-27 08:18] LABS: ALT/SGPT 29 U/L (7.0-40); AST/SGOT 40 U/L (<34); CALCIUM LEVEL 8.6 MG/DL (8.3-10.6); CARBON DIOXIDE LEVEL 25 MMOL/L (20-31); CHLORIDE LEVEL 100 MMOL/L (98-107); CREATININE FOR GFR 0.56 MG/DL (0.55-1.30); GLOMERULAR FILTRATION RATE > 90.0 (>45); POTASSIUM SERUM 3.3 MMOL/L (3.5-5.1); SODIUM LEVEL 138 MMOL/L (136-145)
[2024-09-27] MEDS ORDERED: OXYC1TAB23 PO (09:06)
[2024-09-27] MEDS ORDERED: CEFD300CAP PO (09:06)
[2024-09-27] MEDS ORDERED: CELE100C PO (09:06)
[2024-09-27] MEDS ORDERED: ASPI81TAEC PO (09:06)
[2024-09-27 12:00] VITALS: BP 113/66; TEMP 97.9; O2SAT 99
== END 2024-09-27 13:55 | disposition home or self-care (01) ==
LOC: M SDC 09:25 → M RR INP 09:26 → M MS5PR 14:50
PROVIDERS: ADMIT Orthopaedic Surgery; ATTEND Orthopaedic Surgery
DX: M16.12 Unilateral primary osteoarthritis, left hip (principal); J30.9 Allergic rhinitis, unspecified; F17.290 Nicotine dependence, other tobacco product, uncomplicated; Z79.899 Other long term (current) drug therapy
CPT/HCPCS: 27130; 36415; 72170; 80053; 85027; 88304; 88311; 96374; 96376; 97116; 97161; 97165; 97530; 97535; C1713; C1776; J0131; J0169; J0690; J1100; J1171; J1885; J2250; J2405; J2795; J3010; J3373; S2900

== ENCOUNTER 2024-10-07 12:33 | Inpatient (IN) | payer OTHER ==
[~2024-10-07] VITALS: Ht 157.5 cm; Wt 67.8 kg
[~2024-10-07 12:33] MED LIST changes: -ACET32TAB PO; -ASPI81TA26 PO; -ELIQ5TAB PO; -THERTAB19 PO
[2024-10-07 16:07] LABS: BASO # 0.1 10^3/uL (0.0-0.2); BASO % 0.7 % (0.0-1.0); EOS # 0.1 10^3/uL (0.0-0.5); EOS % 1.0 % (0.0-3.0); LYMPH # 1.0 10^3/uL (1.5-5.0); LYMPH % 11.5 % (24.0-44.0); MONO # 0.5 10^3/uL (0.0-0.8); MONO % 6.1 % (2.0-8.0); NEUTROPHILS # 7.0 10^3/uL (1.5-8.5); NEUTROPHILS % 79.7 % (36.0-66.0); PLATELET COUNT, AUTOMATED 382 10^3/uL (150-450)
[2024-10-07 16:29] LABS: ALT/SGPT 31 U/L (7.0-40); AST/SGOT 76 U/L (<34); CALCIUM LEVEL 8.7 MG/DL (8.3-10.6); CARBON DIOXIDE LEVEL 24 MMOL/L (20-31); CHLORIDE LEVEL 106 MMOL/L (98-107); CREATININE FOR GFR 0.42 MG/DL (0.55-1.30); GLOMERULAR FILTRATION RATE > 90.0 (>45); POTASSIUM SERUM 4.1 MMOL/L (3.5-5.1); SODIUM LEVEL 143 MMOL/L (136-145)
[2024-10-07 16:32] LABS: INR 1.08
[2024-10-07 17:07] LABS: D-DIMER QUANT 2.15 ug/mL (<0.5)
[2024-10-07] MEDS: APIXABAN 5 MG TAB PO ONE (18:26)
[2024-10-07] MEDS ORDERED: ASPI81TA26 PO (18:45)
[2024-10-07] MEDS ORDERED: HOME MED LIST COMPLETE! XX SCH (18:45)
[2024-10-07] MEDS: PERCOCET 5MG/325MG TAB PO ONE (18:58)
[2024-10-07] MEDS ORDERED: ACETAMINOPHEN 325 MG TAB PO PRN (19:25)
[2024-10-07] MEDS ORDERED: MOM 30 ML SUSPENSION UDC PO PRN (19:25)
[2024-10-07] MEDS ORDERED: MAALOX 30 ML SUSP *UDC PO PRN (19:25)
[2024-10-07 21:00] VITALS: BP 145/85; TEMP 97; O2SAT 97
[2024-10-07 22:00] VITALS: BP 145/85; TEMP 97; O2SAT 97
[2024-10-07] MEDS: PRAVASTATIN 20 MG TAB PO SCH (22:26)
[2024-10-07] MEDS: THIAMINE 100 MG TAB PO SCH (22:26)
[2024-10-07] MEDS: LEVOTHYROXINE 100 MCG TABLET (0.1 MG) PO SCH (22:26)
[2024-10-07] MEDS: DOCUSATE SODIUM 100 MG CAPSULE PO SCH (22:28)
[2024-10-07] MEDS: APIXABAN 5 MG TAB PO SCH (22:28)
[2024-10-07] MEDS: ASPIRIN 81 MG ENTERIC TABLET PO SCH (22:29)
[2024-10-07] MEDS: METOPROLOL SUCC. 100 MG *XL* TAB PO SCH (22:29)
[2024-10-07] MEDS: FOLIC ACID 1 MG TAB PO SCH (22:31)
[2024-10-07] MEDS: MULTIVITAMINS/MINERALS THERAP 1 TAB PO SCH (22:32)
[2024-10-08] VITALS (8 sets, daily range): BP systolic 124–145; BP diastolic 72–86; TEMP 96.3–97.5; O2SAT 94–97
[2024-10-08] MEDS: PERCOCET 5MG/325MG TAB PO PRN ×2 (01:56→15:04)
[2024-10-08 07:35] LABS: PLATELET COUNT, AUTOMATED 337 10^3/uL (150-450)
[2024-10-08 07:59] LABS: ALT/SGPT 38 U/L (7.0-40); AST/SGOT 85 U/L (<34); CALCIUM LEVEL 8.1 MG/DL (8.3-10.6); CARBON DIOXIDE LEVEL 26 MMOL/L (20-31); CHLORIDE LEVEL 103 MMOL/L (98-107); CREATININE FOR GFR 0.41 MG/DL (0.55-1.30); GLOMERULAR FILTRATION RATE > 90.0 (>45); MAGNESIUM LEVEL 1.5 MG/DL (1.8-2.4); POTASSIUM SERUM 3.6 MMOL/L (3.5-5.1); SODIUM LEVEL 141 MMOL/L (136-145)
[2024-10-08] MEDS: MAGNESIUM OXIDE 400 MG TAB PO SCH (18:56)
[2024-10-09] VITALS (10 sets, daily range): BP systolic 122–164; BP diastolic 51–93; TEMP 96.8–97.2; O2SAT 96–100
[2024-10-09 07:47] LABS: PLATELET COUNT, AUTOMATED 325 10^3/uL (150-450)
[2024-10-09 08:01] LABS: CALCIUM LEVEL 7.9 MG/DL (8.3-10.6); CARBON DIOXIDE LEVEL 26 MMOL/L (20-31); CHLORIDE LEVEL 105 MMOL/L (98-107); CREATININE FOR GFR 0.44 MG/DL (0.55-1.30); GLOMERULAR FILTRATION RATE > 90.0 (>45); MAGNESIUM LEVEL 1.6 MG/DL (1.8-2.4); POTASSIUM SERUM 3.6 MMOL/L (3.5-5.1); SODIUM LEVEL 142 MMOL/L (136-145)
[2024-10-09] MEDS: PERMETHRIN 5% CREAM 60 GM TOP ONE (17:24)
[2024-10-09] MEDS: PANTOPRAZOLE 40MG VIAL IV SCH (21:25)
[2024-10-10] VITALS (11 sets, daily range): BP systolic 112–149; BP diastolic 65–81; TEMP 96.8–97.5; O2SAT 96–100
[2024-10-10 07:34] LABS: PLATELET COUNT, AUTOMATED 323 10^3/uL (150-450)
[2024-10-10 08:20] LABS: CALCIUM LEVEL 8.0 MG/DL (8.3-10.6); CARBON DIOXIDE LEVEL 25 MMOL/L (20-31); CHLORIDE LEVEL 104 MMOL/L (98-107); CREATININE FOR GFR 0.41 MG/DL (0.55-1.30); GLOMERULAR FILTRATION RATE > 90.0 (>45); MAGNESIUM LEVEL 1.6 MG/DL (1.8-2.4); POTASSIUM SERUM 4.2 MMOL/L (3.5-5.1); SODIUM LEVEL 141 MMOL/L (136-145)
[2024-10-11] VITALS (7 sets, daily range): BP systolic 124–137; BP diastolic 63–77; TEMP 97–97.2; O2SAT 100
[2024-10-11 07:35] LABS: PLATELET COUNT, AUTOMATED 283 10^3/uL (150-450)
[2024-10-11 07:56] LABS: CALCIUM LEVEL 7.8 MG/DL (8.3-10.6); CARBON DIOXIDE LEVEL 25 MMOL/L (20-31); CHLORIDE LEVEL 105 MMOL/L (98-107); CREATININE FOR GFR 0.45 MG/DL (0.55-1.30); GLOMERULAR FILTRATION RATE > 90.0 (>45); MAGNESIUM LEVEL 1.6 MG/DL (1.8-2.4); POTASSIUM SERUM 3.9 MMOL/L (3.5-5.1); SODIUM LEVEL 141 MMOL/L (136-145)
[2024-10-11] MEDS ORDERED: ACET32TAB PO (11:11)
[2024-10-11] MEDS ORDERED: THERTAB19 PO (11:11)
[2024-10-11] MEDS ORDERED: ELIQ5TAB PO (11:11)
[2024-10-12] MEDS ORDERED: CELE1CAP99 PO (10:56)
[2024-10-12] MEDS ORDERED: MULTTAB61 PO (10:56)
[2024-10-12] MEDS ORDERED: PERCOCET PO (10:56)
[2024-10-12] MEDS ORDERED: ELIQ5TAB PO (10:56)
[2024-10-12] MEDS ORDERED: ACET-683 PO (10:56)
== END 2024-10-11 14:00 | disposition home or self-care (01) | DRG 197 ==
LOC: M ED 12:33 → EDBD 12:33 → M ED INP 19:24 → M MS5PR 20:49
PROVIDERS: ADMIT Internal Medicine; ATTEND Family Medicine
DX: I82.462 Acute embolism and thrombosis of left calf muscular vein (principal); I10 Essential (primary) hypertension; E83.42 Hypomagnesemia; E11.9 Type 2 diabetes mellitus without complications; E03.9 Hypothyroidism, unspecified; B86 Scabies; K21.9 Gastro-esophageal reflux disease without esophagitis; F41.9 Anxiety disorder, unspecified; F10.20 Alcohol dependence, uncomplicated; E78.5 Hyperlipidemia, unspecified; M54.9 Dorsalgia, unspecified; R26.2 Difficulty in walking, not elsewhere classified; M81.0 Age-related osteoporosis without current pathological fracture; F17.290 Nicotine dependence, other tobacco product, uncomplicated; R74.01 Elevation of levels of liver transaminase levels; Z96.642 Presence of left artificial hip joint; Z79.82 Long term (current) use of aspirin; Z79.890 Hormone replacement therapy; Z79.899 Other long term (current) drug therapy

== ENCOUNTER → 2024-10-07 | Outpatient (CLI) | payer OTHER ==
[~2024-10-07] MED LIST changes: +ACET-897 PO; +ACET32TAB PO; +ASPI81TA26 PO; +ASPI81TAEC PO; +CEFD300CAP PO; +CELE100C PO; +ELIQ5TAB PO; -LIDOCAINE 2% 100 MG/5 ML SDV (FOR ANES.) As Ordered ONE; -MIDAZOLAM INJ 2 MG/2 ML VIAL As Ordered ONE; +MUPI2OI NARES; +OXYC1TAB23 PO; -ROCURONIUM BROMIDE 50MG/5ML VIAL As Ordered ONE; +THERTAB19 PO
== END ==
LOC: M SOG 06:54
PROVIDERS: ATTEND Orthopaedic Surgery
DX: M16.12 Unilateral primary osteoarthritis, left hip (principal)

== ENCOUNTER 2024-10-12 07:30 | Observation (INO) | payer OTHER ==
[~2024-10-12] VITALS: Ht 154.9 cm; Wt 69.5 kg
[~2024-10-12 07:30] MED LIST changes: +ACET32TAB PO; +ASPI81TA26 PO; +ELIQ5TAB PO; +THERTAB19 PO
[2024-10-12] MEDS: PERCOCET 5MG/325MG TAB PO ONE (07:55)
[2024-10-12] MEDS: APIXABAN 5 MG TAB PO ONE (07:55)
[2024-10-12] MEDS ORDERED: ACET-683 PO (10:56)
[2024-10-12] MEDS ORDERED: MULTTAB61 PO (10:56)
[2024-10-12] MEDS ORDERED: CELE1CAP99 PO (10:56)
[2024-10-12] MEDS ORDERED: PERCOCET PO (10:56)
[2024-10-12] MEDS ORDERED: ELIQ5TAB PO (10:56)
[2024-10-12] MEDS ORDERED: HOME MED LIST COMPLETE! XX SCH (11:00)
[2024-10-12 11:48] LABS: PLATELET COUNT, AUTOMATED 328 10^3/uL (150-450)
[2024-10-12 11:58] LABS: CALCIUM LEVEL 8.6 MG/DL (8.3-10.6); CARBON DIOXIDE LEVEL 25 MMOL/L (20-31); CHLORIDE LEVEL 105 MMOL/L (98-107); CREATININE FOR GFR 0.42 MG/DL (0.55-1.30); GLOMERULAR FILTRATION RATE > 90.0 (>45); POTASSIUM SERUM 3.8 MMOL/L (3.5-5.1); SODIUM LEVEL 140 MMOL/L (136-145)
[2024-10-12] MEDS: ACETAMINOPHEN 500 MG TAB PO PRN (14:53)
[2024-10-12 18:30] VITALS: BP 140/88; TEMP 97.5; O2SAT 99
[2024-10-12 21:48] VITALS: BP 135/78; TEMP 97.7; O2SAT 100
[2024-10-12] MEDS: PRAVASTATIN 20 MG TAB PO SCH (21:52)
[2024-10-12] MEDS: APIXABAN 5 MG TAB PO SCH (21:52)
[2024-10-12] MEDS: METOPROLOL SUCC. 100 MG *XL* TAB PO SCH (21:56)
[2024-10-12] MEDS: PERCOCET 5MG/325MG TAB PO PRN (21:57)
[2024-10-12] MEDS: LEVOTHYROXINE 100 MCG TABLET (0.1 MG) PO SCH (21:57)
[2024-10-13 07:15] VITALS: BP 122/68; TEMP 97.7; O2SAT 99
[2024-10-13 07:28] LABS: PLATELET COUNT, AUTOMATED 301 10^3/uL (150-450)
[2024-10-13 07:43] LABS: CALCIUM LEVEL 8.3 MG/DL (8.3-10.6); CARBON DIOXIDE LEVEL 27 MMOL/L (20-31); CHLORIDE LEVEL 104 MMOL/L (98-107); CREATININE FOR GFR 0.46 MG/DL (0.55-1.30); GLOMERULAR FILTRATION RATE > 90.0 (>45); POTASSIUM SERUM 3.6 MMOL/L (3.5-5.1); SODIUM LEVEL 142 MMOL/L (136-145)
[2024-10-13 19:58] VITALS: BP 137/73; TEMP 97.3; O2SAT 100
[2024-10-14 05:14] VITALS: BP 115/69; TEMP 97.3; O2SAT 100
[2024-10-14 14:00] VITALS: BP 146/76; TEMP 97.7; O2SAT 100
[2024-10-14 19:49] VITALS: BP 143/82; TEMP 97.5; O2SAT 100
[2024-10-15 05:48] VITALS: BP 142/81; TEMP 97.2; O2SAT 98
[2024-10-15 11:43] LABS: PLATELET COUNT, AUTOMATED 353 10^3/uL (150-450)
[2024-10-15 12:00] VITALS: BP 121/72; TEMP 97.7; O2SAT 98
[2024-10-15 12:15] LABS: IRON (FE) 22 UG/DL (50-170)
[2024-10-15 12:16] LABS: PERCENT SATURATION 9.4 % (13.2-45.0)
[2024-10-15 12:27] LABS: ALT/SGPT 15 U/L (7.0-40); AST/SGOT 26 U/L (<34); CALCIUM LEVEL 8.5 MG/DL (8.3-10.6); CARBON DIOXIDE LEVEL 26 MMOL/L (20-31); CHLORIDE LEVEL 104 MMOL/L (98-107); CREATININE FOR GFR 0.44 MG/DL (0.55-1.30); GLOMERULAR FILTRATION RATE > 90.0 (>45); POTASSIUM SERUM 3.3 MMOL/L (3.5-5.1); SODIUM LEVEL 141 MMOL/L (136-145)
[2024-10-15 20:54] VITALS: BP 143/80; TEMP 97.3; O2SAT 97
[2024-10-15] MEDS: APIXABAN 5 MG TAB PO SCH (21:38)
[2024-10-16 05:46] VITALS: BP 123/79; TEMP 97.2; O2SAT 96
[2024-10-16 11:06] LABS: VITAMIN B12 LEVEL 878.0 PG/ML (211-911)
[2024-10-16 14:00] VITALS: BP 144/86; TEMP 97.5; O2SAT 96
[2024-10-16] MEDS: PERMETHRIN 5% CREAM 60 GM TOP ONE (20:00)
[2024-10-16 21:48] VITALS: BP 138/73; TEMP 97.3; O2SAT 97
[2024-10-17] VITALS (10 sets, daily range): BP systolic 130–155; BP diastolic 70–83; TEMP 97.2–98; O2SAT 16–100
[2024-10-17 07:15] LABS: PLATELET COUNT, AUTOMATED 333 10^3/uL (150-450)
[2024-10-17 08:20] LABS: ALT/SGPT 14 U/L (7.0-40); AST/SGOT 28 U/L (<34); CALCIUM LEVEL 8.2 MG/DL (8.3-10.6); CARBON DIOXIDE LEVEL 27 MMOL/L (20-31); CHLORIDE LEVEL 105 MMOL/L (98-107); CREATININE FOR GFR 0.46 MG/DL (0.55-1.30); GLOMERULAR FILTRATION RATE > 90.0 (>45); POTASSIUM SERUM 3.8 MMOL/L (3.5-5.1); SODIUM LEVEL 141 MMOL/L (136-145)
[2024-10-17] MEDS: PERMETHRIN 5% CREAM 60 GM TOP ONE (09:42)
[2024-10-18 06:00] VITALS: BP 118/65; TEMP 97.2; O2SAT 94
[2024-10-18] MEDS ORDERED: ELIQ5TAB PO (12:10)
[2024-10-18 14:00] VITALS: BP 160/93; TEMP 97.7; O2SAT 100
[2024-10-19 01:02] LABS: PROTEIN, TOTAL SO 5.2 g/dL (6.1-8.1)
[2024-10-20 07:02] LABS: ALBUMIN SO 2.7 g/dL (3.8-4.8); ALPHA 1 GLOBULINS SO 0.4 g/dL (0.2-0.3); ALPHA 2 GLOBULINS SO 0.7 g/dL (0.5-0.9); BETA 2 GLOBULIN SO 0.4 g/dL (0.2-0.5); BETA GLOBULIN SO 0.3 g/dL (0.4-0.6); GAMMA GLOBULINS SO 0.7 g/dL (0.8-1.7)
== END 2024-10-18 18:25 ==
LOC: M ED 07:30 → EDBD 07:30 → M ED INP 07:31 → M MS5PR 18:19
PROVIDERS: ADMIT Family Medicine; ATTEND Student in an Organized Health Care Education/Training Program
DX: G89.18 Other acute postprocedural pain (principal); R26.2 Difficulty in walking, not elsewhere classified; Z96.642 Presence of left artificial hip joint; R60.0 Localized edema; D64.9 Anemia, unspecified; D75.89 Other specified diseases of blood and blood-forming organs; I82.402 Acute embolism and thrombosis of unspecified deep veins of left lower extremity; F10.20 Alcohol dependence, uncomplicated; B86 Scabies; E03.9 Hypothyroidism, unspecified; I10 Essential (primary) hypertension; K21.9 Gastro-esophageal reflux disease without esophagitis; F41.9 Anxiety disorder, unspecified; E78.5 Hyperlipidemia, unspecified; M81.0 Age-related osteoporosis without current pathological fracture; M54.9 Dorsalgia, unspecified; M51.9 Unspecified thoracic, thoracolumbar and lumbosacral intervertebral disc disorder; M16.12 Unilateral primary osteoarthritis, left hip; J30.89 Other allergic rhinitis; Z79.899 Other long term (current) drug therapy; Z79.82 Long term (current) use of aspirin; Z79.890 Hormone replacement therapy
CPT/HCPCS: 36415; 36430; 73502; 73718; 80048; 80053; 82607; 82728; 82746; 83550; 84155; 84165; 85014; 85018; 85027; 85046; 86850; 86900; 86901; 86920; 87426; 97110; 97116; 97162; 97165; 97530; 97535; 99285; P9016

== ENCOUNTER → 2024-12-01 | Outpatient (CLI) | payer OTHER ==
[~2024-12-01] MED LIST changes: +CELE1CAP99 PO; +MULTTAB61 PO; +PERCOCET PO
== END ==
LOC: M SOG 07:25
PROVIDERS: ATTEND Orthopaedic Surgery
DX: Z47.1 Aftercare following joint replacement surgery (principal); Z96.642 Presence of left artificial hip joint